=== PATIENT | male | born 1955 | race Caucasian/White ===

== ENCOUNTER 2019-11-27 14:00 | Emergency (ER) | payer OTHER, SELFPAY ==
[2019-11-27 14:05] VITALS: BP 140/79; PULSE 70; RESP 18; TEMP 36.8; O2SAT 97; BMI 28.3
--- NOTE | 2019-11-27 14:08 | HMH.COUGH ---
Cough Clinic HPI - History of Present Illness Complaint:: cough HPI:: Patient presents with a one-week history of cough, fatigue, and dyspnea with exertion. Cough is productive of yellowish-green sputum. He complains of a tightness in his chest. No pleuritic pain. He has no fever. Patient states he had a prolonged illness back in the fall with cough, congestion and fatigue. He states at that time his cough lasted about 6 weeks. Additional history is significant for having been exposed to the index case of coronavirus here in [place] about 7 weeks ago. 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 Home Medications: Home Medications Medication Instructions Recorded Confirmed Type acetaminophen 300 mg-codeine 30 mg 1 tab PO DAILY 15 Days tab 11/04/18 11/27/19 History tablet aspirin 81 mg tablet,delayed 81 mg PO DAILY 11/04/18 11/27/19 History release atorvastatin 80 mg tablet 80 mg PO DAILY 11/04/18 11/27/19 History carvedilol 6.25 mg tablet 6.25 mg PO BID 11/04/18 11/27/19 History cephalexin 500 mg capsule 500 mg PO DAILY 5 Days cap 11/04/18 11/27/19 History cholecalciferol (vitamin D3) 25 1,000 unit PO DAILY 11/04/18 11/27/19 History mcg (1,000 unit) capsule clopidogrel 75 mg tablet 75 mg PO DAILY 11/04/18 11/27/19 History clopidogrel 75 mg tablet 75 mg PO DAILY 90 Days tab 11/04/18 11/27/19 History lisinopril 5 mg tablet 5 mg PO DAILY 90 Days tab 11/04/18 11/27/19 History [id number] acid-vit 1 tab PO DAILY 11/04/18 11/27/19 History K-lycop 400 mcg-20 mcg-370 mcg tablet nitroglycerin 2.5 mg 2.5 mg PO TID 11/04/18 11/27/19 History capsule,extended release omega-3 fatty acids 1,000 mg 1,000 mg PO DAILY 11/04/18 11/27/19 History capsule ondansetron 4 mg disintegrating 4 mg PO TID PRN 5 Days #15 tab 11/04/18 11/27/19 Rx tablet valacyclovir 1 gram tablet 1,000 mg PO DAILY 11/04/18 11/27/19 History vitamin E 1,000 unit/112 gram 1,000 unit TOPICAL DAILY g 11/04/18 11/27/19 History topical cream Allergies/Adverse Reactions: Allergies Allergy/AdvReac Type Severity Reaction Status Date / Time No Known Allergies Allergy Verified 11/27/19 14:04 [facility] T[facility] - Symptoms Fever History: No Nasal Drainage: Yes Productive Cough: Yes (green) Chest Pain: Yes (tight) Shortness of Breath: Yes Nausea or Vomitting: No - Exposure History Foreign Travel: No Direct Contact with COVID-19 Patient: Yes If YES, Who:: Nader Vallejo index patient When:: 7 weeks ago [facility] History Medical History: Reports:: Coronary Artery Disease, Hyperlipidemia, Hypertension, Myocardial Infarction Other Surgeries: Yes: Coronary Stent Amputation: No Fractures: No - Social History Smoking Status: Former smoker Alcohol Intake: current Alcohol Intake Frequency:: holidays/special occasions only Substance Use Type: denies use Occupational Status: employed Housing: house Household Members: spouse Family Hx:: Adopted - Constitutional Constitutional: Denies body ache, Reports fatigue, Denies fever(s), Reports malaise, Reports weakness - Eyes Eyes: Denies eye discharge, Denies irritation - ENT Ears, Nose, Mouth, and Throat: Denies otalgia, Denies hoarseness, Denies sore throat - Cardiovascular Cardiovascular: Reports chest pain (described as tightness) - Respiratory Respiratory: Yes as per HPI - Gastrointestinal Gastrointestingal: Denies: diarrhea, vomiting [facility] Exam - General General appearance: in no apparent distress - Eye Eye exam: Absent: conjunctival injection - ENT ENT exam: Present: normal oropharynx, mucous membranes moist - Neck Neck exam: Absent: tenderness, lymphadenopathy - Respiratory Respiratory exam: Present: normal lung sounds bilaterally - Cardiovascular Cardiovascular exam: Present: normal rhythm, normal heart sounds - Neurological Exam Neurological exam: Present: alert [facility] MDM - Medical Records Medical records reviewed:
[2019-11-27 14:25] LABS: Basophils % 0.5 % (0.1-2.0); Eosinophils # 0.6 K/mm3 (0.0-0.4); Eosinophils % 9.6 % (0.1-12.0); Hematocrit 43.4 % (42.0-52.0); Hemoglobin 14.8 g/dL (14.1-18.0); Lymphocytes % 29.5 % (10-50); Mean Corpuscular HGB Conc 34.1 g/dL (31.8-35.4); Mean Corpuscular Hemoglobin 31.7 pg (27.0-31.2); Mean Corpuscular Volume 93.1 fl (80-94); Mean Platelet Volume 9.3 fl (7.4-10.4); Monocytes # 0.6 K/mm3 (0.1-1.0); Monocytes % 8.7 % (1.7-9.3); Neutrophils # 3.4 K/mm3 (1.8-7.8); Neutrophils % 51.7 % (37.0-80.0); Platelet Count 185 K/mm3 (142-424); Red Blood Count 4.66 M/mm3 (4.60-6.20); Red Cell Distribution Width 13.8 % (11.5-17.5); White Blood Count 6.6 K/mm3 (4.8-10.8)
[2019-11-27 14:47] LABS: Adenovirus,PCR Not Detected (NotDetected); Bordetella Pertussis Not Detected (NotDetected); Chlamydophila Pneumoniae, PCR Not Detected (NotDetected); Coronavirus 229E Not Detected (NotDetected); Coronavirus NL63 Not Detected (NotDetected); Coronavirus OC43 Not Detected (NotDetected); Coronovirus HKU1,PCR Not Detected (NotDetected); Human Metapneumovirus Not Detected (NotDetected); Influenza A, PCR Not Detected (NotDetected); Influenza AH1, 2009 Not Detected (NotDetected); Influenza AH1, PCR Not Detected (NotDetected); Influenza AH3,PCR Not Detected (NotDetected); Influenza B, PCR Not Detected (NotDetected); Mycoplasma Pneumoniae, PCR Not Detected (NotDetected); Parainfluenza 1, PCR Not Detected (NotDetected); Parainfluenza 2, PCR Not Detected (NotDetected); Parainfluenza 3, PCR Not Detected (NotDetected); Parainfluenza 4, PCR Not Detected (NotDetected); Respiratory Syncytial Virus Not Detected (NotDetected); Rhinovirus/Enterovirus Not Detected (NotDetected)
[2019-11-27 15:07] VITALS: BP 140/79; PULSE 70; RESP 18; TEMP 36.8; O2SAT 97
[2019-11-29 08:51] LABS: Covid-19 Nasal PCR Sendout Lex Not Detected
--- NOTE | 2019-11-29 10:15 | PC.NURSE ---
Notified patient and Dr Reid of NEGATIVE COVID results. Faxed to [facility].
== END 2019-11-27 15:05 | disposition home or self-care (01) ==
PROVIDERS: Emergency Provider Family Medicine; PCP Family Medicine
DX: J06.9 Acute upper respiratory infection, unspecified (principal); I25.10 Atherosclerotic heart disease of native coronary artery without angina pectoris; I10 Essential (primary) hypertension; E78.5 Hyperlipidemia, unspecified; I25.2 Old myocardial infarction; Z87.891 Personal history of nicotine dependence; Z79.899 Other long term (current) drug therapy
CPT/HCPCS: 36415; 85025; 87486; 87581; 87633; 87798; 99201; 99213; U0003

== ENCOUNTER → 2023-06-06 07:43 | Outpatient (CLI) | payer MEDICARE, OTHER, SELFPAY ==
--- NOTE | 2023-06-06 07:47 | US_ITS ---
FINAL REPORT TECHNIQUE: Ultrasound images of the abdominal aorta were obtained. CLINICAL HISTORY: H/O NICOTINE DEPENDENCE COMPARISON: None FINDINGS: ULTRASOUND OF THE ABDOMINAL AORTA The aorta measures up to 1.7 cm. The bifurcation is normal. IMPRESSION: No evidence of abdominal aortic aneurysm. Reviewed, Interpreted and Dictated by Charan Dominguez III, MD Transcribed by Betzy Quinn Authenticated and . [facility]
== END ==
PROVIDERS: PCP Family Medicine; Visit Provider Family Medicine
DX: Z87.891 Personal history of nicotine dependence (principal)
CPT/HCPCS: 76705

== ENCOUNTER 2024-04-15 15:47 | Outpatient (POV) | payer MEDICARE, OTHER, SELFPAY | END 2024-04-15 23:59 | disposition home or self-care (01) | LOC: SC 15:47 | PROVIDERS: PCP Family Medicine; Visit Provider Dermatology | DX: Z00.00 Encounter for general adult medical examination without abnormal findings (principal) ==

== ENCOUNTER 2024-09-21 09:52 | Observation (INO) | payer MEDICARE, OTHER, SELFPAY ==
[2024-09-21] VITALS (10 sets, daily range): BP systolic 110–157; BP diastolic 84–95; PULSE 66–88; RESP 17–19; TEMP 36.5–37.1; O2SAT 92–99; BMI 25.8; BMI 27.2
--- NOTE | 2024-09-21 09:48 | ECG_ITS ---
APPROVED REPORT Exam: Resting ECG HR:88 bpm ECG Measurements Heart Rate 88 AXES [place] 151 P 57 QRSd 89 QRS 38 QT 342 T 67 QTc 388 Conclusion SINUS RHYTHM NORMAL ECG UNCONFIRMED REPORT Electronically signed by : Jaden Castro, 09/21/2024 15:12:51
--- NOTE | 2024-09-21 10:04 | XR_ITS ---
PROCEDURE INFORMATION: Exam: XR Chest Exam date and time: 09/21/2024 10:15 AM Age: 69 years old Clinical indication: Other: Chest pain TECHNIQUE: Imaging protocol: Radiologic exam of the chest. Views: 1 view. COMPARISON: No relevant prior studies available. FINDINGS: Lungs: No evidence of pneumonia or interstitial edema. Pleural spaces: Unremarkable. No pleural effusion. No pneumothorax. Heart/Mediastinum: Unremarkable. No cardiomegaly. Bones/joints: Unremarkable. IMPRESSION: No evidence of pneumonia or interstitial edema.
[2024-09-21 10:12] LABS: Basophils % 0.4 % (0.1-2.0); Eosinophils # 0.3 K/mm3 (0.0-0.4); Eosinophils % 3.2 % (0.1-12.0); Hemoglobin 16.1 g/dL (14.1-18.0); Lymphocytes % 19.5 % (10-50); Mean Corpuscular HGB Conc 33.5 g/dL (31.8-35.4); Mean Corpuscular Hemoglobin 30.6 pg (27.0-31.2); Mean Corpuscular Volume 91.3 fl (80-94); Mean Platelet Volume 11.1 fl (7.4-10.4); Monocytes % 10.2 % (1.7-9.3); Neutrophils # 6.7 K/mm3 (1.8-7.8); Neutrophils % 65.5 % (37.0-80.0); Platelet Count 226 K/mm3 (142-424); Red Blood Count 5.26 M/mm3 (4.60-6.20); Red Cell Distribution Width 13.1 % (11.5-17.5); White Blood Count 10.2 K/mm3 (4.8-10.8)
[2024-09-21 10:13] LABS: Chloride 100 mmol/L (98-107)
[2024-09-21 10:14] LABS: Albumin Level 4.3 g/dl (3.5-5.0); Potassium 4.2 mmoL/L (3.5-5.1); Sodium 136 mmol/L (136-145)
[2024-09-21 10:16] LABS: Blood Urea Nitrogen 20 mg/dl (9-20)
[2024-09-21 10:17] LABS: Alanine Aminotransferase 49 U/L (12-78); Albumin/Globulin Ratio 1.7 (1.1-1.8); Alkaline Phosphatase 65 U/L (38-126); Anion Gap 13.2 mEq/L (5-15); Aspartate Amino Transferase 41 U/L (17-59); Bilirubin,Total 0.5 mg/dl (0.2-1.3); Calcium 8.5 mg/dl (8.4-10.2); Carbon Dioxide 27 mmol/L (22.0-30.0); Creatinine Clearance Estimated 92 mL/min (50-200); Estimated Glomerular Filt Rate 96 ml/min (>60); GFR (African American) 117 ML/MIN (>60); Globulin 2.6 g/dL (1.3-3.2); Glucose 107 mg/dl (74-100); Total Protein,Serum 6.9 g/dl (6.3-8.2)
[2024-09-21] MEDS: ASPIRIN 81MG CHEWABLE TABLET 324 MG PO (10:23)
--- NOTE | 2024-09-21 10:27 | PC.NURSE ---
pt has taken multiple nitro sl over the last several days.
[2024-09-21 10:39] LABS: Troponin I < 0.01 ng/ml (0.00-0.034)
[2024-09-21 11:19] LABS: HIV Combo NEGATIVE (Negative)
--- NOTE | 2024-09-21 11:24 | PC.NURSE ---
on phone with hospitalist
[2024-09-21 11:26] LABS: Hepatitis C Ab Qual. W/ RFX NEGATIVE (Negative)
--- NOTE | 2024-09-21 11:30 | HMH.EDCP ---
Discharge Plan Disposition Chief Complaint: Chest Pain Prescriptions Prescriptions: No Action acetaminophen-codeine 300-30 mg tablet 1 tab PO DAILY 15 Days lisinopril 5 mg tablet 5 mg PO DAILY 90 Days clopidogrel 75 mg tablet 75 mg PO DAILY 90 Days cephalexin 500 mg capsule 500 mg PO DAILY 5 Days atorvastatin 80 mg tablet 80 mg PO DAILY carvedilol 6.25 mg tablet 6.25 mg PO BID valacyclovir 1 gram tablet 1,000 mg PO DAILY nitroglycerin 2.5 mg capsule, extended release 2.5 mg PO TID aspirin [Adult Low Dose Aspirin] 81 mg tablet,delayed release (DR/EC) 81 mg PO DAILY Men's 50 Plus Multivitamin 400-20-370 mcg tablet 1 tab PO DAILY omega-3 fatty acids [Fish Oil Concentrate] 1,000 mg capsule 1,000 mg PO DAILY vitamin E 1,000 unit/112 gram cream 1,000 unit TOPICAL DAILY cholecalciferol (vitamin D3) 1,000 unit capsule 1,000 unit PO DAILY clopidogrel [Plavix] 75 mg tablet 75 mg PO DAILY ondansetron 4 mg tablet,disintegrating 4 mg PO TID PRN (Reason: nausea and vomiting) 5 Days Qty: 15 0RF Referrals Follow up/Referrals: Dilma Horta [Primary Care Provider] - See instructions Print Language Print Language: Icelandic Discharge ED Provider: Sridhar Castro [facility] General Chief Complaint: Chest Pain Stated Complaint: chest pain Time Seen by Provider: 09/21/24 11:06 Mode of Arrival: Ambulatory Source of Information: Patient Limitations: No Limitations Description of Symptoms (Recalled from ER Triage Doc. by RN): pt has been having intermittent chest pain for several days. has taken multiple nitro. has an extensive cardiac history. [facility] cardiology History of Present Illness HPI narrative: Patient is a 69-year-old male with a known history of coronary artery disease whose had 13 stents in the past most recent left heart cath was in 2017 most recent stress test was in 2019 and has been asymptomatic essentially since that time presents today with 2 weeks of worsening and crescendoing chest pain that has been relieved each time with nitroglycerin. However has been nonexertional. No diaphoresis or shortness of breath associate with it. He is currently without symptoms most recent episode was just prior to arrival that was resolved with nitroglycerin. States that he is typically followed at [facility] but his front end alignment specialist is no longer there and they called their office who said good luck. Therefore they came to her similar. They are happy with their management here. Patient states the chest pain is very similar to MIs he is in the past. Related Data Home Medications ?Medication ?Instructions ?Recorded ?Confirmed acetaminophen 300 mg-codeine 30 mg 1 tab PO DAILY Pain 15 days 11/04/18 11/27/19 tablet aspirin 81 mg tablet,delayed 81 mg PO DAILY heart heralth 11/04/18 11/27/19 release (Adult Low Dose Aspirin) atorvastatin 80 mg tablet 80 mg PO DAILY chjolestrol 11/04/18 11/27/19 carvedilol 6.25 mg tablet 6.25 mg PO BID htn 11/04/18 11/27/19 cephalexin 500 mg capsule 500 mg PO DAILY Infection 5 days 11/04/18 11/27/19 cholecalciferol (vitamin D3) 25 1,000 unit PO DAILY Supplement 11/04/18 11/27/19 mcg (1,000 unit) capsule clopidogrel 75 mg tablet 75 mg PO DAILY Blood thinner 90 11/04/18 11/27/19 days clopidogrel 75 mg tablet (Plavix) 75 mg PO DAILY Blood thinner 11/04/18 11/27/19 lisinopril 5 mg tablet 5 mg PO DAILY htn 90 days 11/04/18 11/27/19 [id number] acid-vit 1 tab PO DAILY Supplement 11/04/18 11/27/19 K-lycop 400 mcg-20 mcg-370 mcg tablet (Men's 50 Plus Multivitamin) nitroglycerin 2.5 mg 2.5 mg PO TID Heartburn 11/04/18 11/27/19 capsule,extended release omega-3 fatty acids 1,000 mg 1,000 mg PO DAILY Supplement 11/04/18 11/27/19 capsule (Fish Oil Concentrate) valacyclovir 1 gram tablet 1,000 mg PO DAILY Infection 11/04/18 11/27/19 vitamin E 1,000 unit/112 gram 1,000 unit topical DAILY Supplement 11/04/18 11/27/19 topical cream Previous Rx's ?Medication ?Instructions ?Recorded ondansetron 4 mg disintegrating 4 mg PO TID PRN nausea and 11/04/18 tablet vomiting 5 days #15 tabs Allergies Allergy/AdvReac Type Severity Reaction Status Date / Time No Known Allergies Allergy Verified 11/27/19 14:04 [facility] Disclaimer: The information contained in this section may have been updated after the patient was seen, as this information can be updated by other users. Social History Smoking Status: Never smoker alcohol intake: current alcohol intake frequency: holidays/special occasions only substance use type: denies use current occupational status: employed Travel in the last 8 weeks: None household members: spouse housing: house Have you lived/traveled outside US in past 30 days?: No Contact w/someone who lives/traveled outside US past 30 days?: No Exposure to someone with infectious disease in past 14 days?: No Do you have a fever (greater than 100.4 F or 38 C)?: No Have you tested positive for COVID-19: No Exposed to someone with COVID-19 in past 14 days?: No Do you have a sore throat?: No Do you have a cough?: No Do you have any weakness?: No Do you have any diarrhea?: No Are you experiencing any unusual bleeding?: No Do you have any muscle aches/pain?: No Do you have any abdominal pain?: No Are you experiencing loss of taste or smell?: No ROS Obtained: Yes All systems reviewed & no additional complaints except as documented Physical Exam General General appearance: alert Respiratory Respiratory exam: Present normal lung sounds bilaterally; Absent respiratory distress Cardiovascular Cardiovascular exam: Present regular rate and normal rhythm Neurological Exam Neurological exam: Present alert HEART Score HEART Score HEART Score assessment performed?: Yes History (anamnesis): Highly suspicious ECG: Normal Age: >65 years Risk factors: Atherosclerosis history Troponin: </= normal limit HEART Score: 6 Critical Care Critical Care Time Critical Care Time: Yes Attestation: On 09/21/24, the high probability of a clinically significant, sudden or life threatening deterioration of the following system(s) required my full and direct attention, intervention and personal management. The time I documented below is in addition to time spent performing reported procedures but includes the following listed in this critical care notation. Total Time Total Critical Care Time: 35 Medical Decision Making Chuck Inquiry Pt receiving controlled substance: No Vital Signs Vital Signs: 09/21/24 09:52 09/21/24 10:52 Temperature 98.0 F Temperature Source Oral Pulse Rate 76 Pulse Rate [Right] 80 Respiratory Rate 18 17 Blood Pressure 117/84 Blood Pressure [Right Arm] 135/90 Blood Pressure Mean [Right Arm] 105 02 Sat by Pulse Oximetry 98 92 L Lab Data Lab results reviewed: Yes I reviewed the patient's lab results. Labs: Lab Results 09/21/24 09:54: WBC 10.2, RBC 5.26, Hgb 16.1, Hct 48.0, MCV 91.3, MCH 30.6, MCHC 33.5, RDW 13.1, Plt Count 226, MPV 11.1 H, Neut % (Auto) 65.5, Lymph % (Auto) 19.5, [place] % (Auto) 10.2 H, Eos % (Auto) 3.2, Baso % (Auto) 0.4, Neut # (Auto) 6.7, Lymph # (Auto) 2.0, [place] # (Auto) 1.0, Eos # (Auto) 0.3, Baso # (Auto) 0.0, Sodium 136, Potassium 4.2, Chloride 100, Carbon Dioxide 27, Anion Gap 13.2, BUN 20, Creatinine 0.80, Estimated Creat Clear 92, Estimated GFR 96, Est GFR ( Amer) 117, Glucose 107 H, Calcium 8.5, Total Bilirubin 0.5, AST 41, ALT 49, Alkaline Phosphatase 65, Troponin I < 0.01, Total Protein 6.9, Albumin 4.3, Globulin 2.6, Albumin/Globulin Ratio 1.7, HCV Ab MEG w/Rflx PCR Qn Negative, HIV Ag/Ab Combo Qual Negative 09/21/24 09:54 09/21/24 09:54 Response Orders (Tests/Meds): ED MEDICATIONS Generic Name Dose Route Start Last Admin Trade Name Freq PRN Reason Stop Dose Admin Nitroglycerin 0.4 mg 09/21/24 10:04 Nitroglycerin 0.4mg Sl Tablet SL 09/22/24 10:04 Q5MINP PRN Chest Pain Discontinued Medications Generic Name Dose Route Start Last Admin Trade Name Freq PRN Reason Stop Dose Admin Aspirin 324 mg 09/21/24 10:04 09/21/24 10:23 Aspirin 81mg Chewable Tablet PO 09/21/24 10:05 324 mg ONCE ONE Administration ORDERS Category Date Time Status XR chest portable Stat Exams 09/21/24 10:04 Completed Complete Blood Count Auto Diff Stat Lab 09/21/24 09:54 Completed Comprehensive Metabolic Panel Stat Lab 09/21/24 09:54 Completed HIV Combo Stat Lab 09/21/24 09:54 Completed Hepatitis C Ab Qual. W/ RFX Stat Lab 09/21/24 09:54 Completed Troponin I Q3H Lab 09/21/24 13:15 Ordered Troponin I Q3H Lab 09/21/24 16:15 Ordered Troponin I Stat Lab 09/21/24 09:54 Completed ECG Data Tracing #1: Attestation: I reviewed this ECG and interpreted as documented below: ECG Narrative: Ventricular rate of 88 normal sinus rhythm no acute ischemic changes noted normal axis no conduction abnormality MDM Narrative Medical Decision Narrative: Well-appearing 69-year-old who is without symptoms at the moment but has a very concerning history. Has a significantly elevated heart score. His symptoms are consistent clinically with unstable angina. EKG is nonischemic troponin on first measurement is undetectably low but that would not exchange mechanic. Patient likely needs another heart cath. I discussed the case with Dr. Jaimes who agreed. Patient is already on Eliquis for atrial fibrillation in the past for which she has had a ablation but is also on aspirin. We asked that he hold the Eliquis I spoke to hospital medicine and advised him of this to hold in the morning. Patient does not need further anticoagulation or antiplatelets at the moment. Will admit the patient with a diagnosis of unstable angina with plans to do a heart cath in the morning.
--- NOTE | 2024-09-21 11:59 | PC.NURSE ---
Patient assisted to the restroom and back. Monitor /BP re-attached
--- NOTE | 2024-09-21 12:13 | PC.NURSE ---
report called to Herlinda
--- NOTE | 2024-09-21 12:48 | PC.NURSE ---
arrived by w/c from ED
--- NOTE | 2024-09-21 13:36 | EXP.HP ---
History of Present Illness *Admission Date: 09/21/24 *Reason for visit:: Chest pains *History of present illness: Abdias Peng is a 69-year-old male with a medical history significant for CAD s/p 13 stents (last 2016, [employer] [place]), former 30 pack smoker, Eliquis s/p ablation on Eliquis, hypertension, shingles who presents with 3 weeks of progressive intermittent chest pains. He states chest pains are diffuse, not midsternal, and did have an episode of associated diaphoresis though this was after exertion. He states the chest pains are also present with rest, no associated shortness of breath. Not related to eating. Does have a history of acid reflux a couple times a week. 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 Advised to go to the ED if chest pains persist. Workup in the ED significant for negative troponin, EKG unremarkable for acute ischemic findings. Dx are also unremarkable. Case discussed with ED provider and decision was made to admit patient for unstable angina. [facility] Disclaimer: The information contained in this section may have been updated after the patient was seen, as this information can be updated by other users. Medical History (Updated 09/21/24 @ 14:29 by Lo Larry RN) History of mechanical ventilation Chest pain History of shingles HTN (hypertension) HLD (hyperlipidemia) Back pain Pelvic fracture COPD (chronic obstructive pulmonary disease) Heart attack Afib Surgical History (Updated 09/21/24 @ 14:28 by Lo Larry RN) History of cardiac catheterization Social History Smoking Status: Never smoker alcohol intake: current alcohol intake frequency: holidays/special occasions only substance use type: denies use current occupational status: employed Travel in the last 8 weeks: None household members: spouse housing: house Have you lived/traveled outside US in past 30 days?: No Contact w/someone who lives/traveled outside US past 30 days?: No Exposure to someone with infectious disease in past 14 days?: No Do you have a fever (greater than 100.4 F or 38 C)?: No Have you tested positive for COVID-19: No Exposed to someone with COVID-19 in past 14 days?: No Do you have a sore throat?: No Do you have a cough?: No Do you have any weakness?: No Do you have any diarrhea?: No Are you experiencing any unusual bleeding?: No Do you have any muscle aches/pain?: No Do you have any abdominal pain?: No Are you experiencing loss of taste or smell?: No Meds Home Medications and Allergies Home Medications ?Medication ?Instructions ?Recorded ?Confirmed ?Type aspirin 81 mg tablet,delayed 81 mg PO DAILY 11/04/18 09/21/24 History release (Adult Low Dose Aspirin) atorvastatin 80 mg tablet 80 mg PO HS 11/04/18 09/21/24 History lisinopril 5 mg tablet 5 mg PO DAILY 90 days 11/04/18 09/21/24 History apixaban 5 mg tablet (Eliquis) 5 mg PO BID 09/21/24 09/21/24 History loratadine-pseudoephedrine ER 10 1 tab PO DAILY 09/21/24 09/21/24 History mg-240 mg tablet,extended [id number] (Loratadine-D) nitroglycerin 0.4 mg sublingual 0.4 mg sublingual Q5MINP PRN Chest 09/21/24 09/21/24 History tablet Pain valacyclovir 500 mg tablet 500 mg PO DAILY 09/21/24 09/21/24 History New Prescriptions to Start Prescriptions: Allergies Allergy/AdvReac Type Severity Reaction Status Date / Time No Known Allergies Allergy Verified 11/27/19 14:04 Exam Data for Last 24 hours Vital signs and Labs for Last 24 Hours: Temp Pulse Resp BP Pulse Ox O2 Del Method 97.7 F 77 18 128/92 H 96 Room Air 09/21/24 12:50 09/21/24 12:50 09/21/24 12:50 09/21/24 12:50 09/21/24 12:50 09/21/24 12:50 Laboratory Results - last 24 hr 09/21/24 09:54: WBC 10.2, RBC 5.26, Hgb 16.1, Hct 48.0, MCV 91.3, MCH 30.6, MCHC 33.5, RDW 13.1, Plt Count 226, MPV 11.1 H, Neut % (Auto) 65.5, Lymph % (Auto) 19.5, [place] % (Auto) 10.2 H, Eos % (Auto) 3.2, Baso % (Auto) 0.4, Neut # (Auto) 6.7, Lymph # (Auto) 2.0, [place] # (Auto) 1.0, Eos # (Auto) 0.3, Baso # (Auto) 0.0, Sodium 136, Potassium 4.2, Chloride 100, Carbon Dioxide 27, Anion Gap 13.2, BUN 20, Creatinine 0.80, Estimated Creat Clear 92, Estimated GFR 96, Est GFR ( Amer) 117, Glucose 107 H, Calcium 8.5, Total Bilirubin 0.5, AST 41, ALT 49, Alkaline Phosphatase 65, Troponin I < 0.01, Total Protein 6.9, Albumin 4.3, Globulin 2.6, Albumin/Globulin Ratio 1.7, HCV Ab MEG w/Rflx PCR Qn Negative, HIV Ag/Ab Combo Qual Negative I & O for Last 24 hours: Intake & Output 09/18/24 09/19/24 09/20/24 09/21/24 23:59 23:59 23:59 23:59 Weight 91.172 kg Constitutional Constitutional: no acute distress *Routine HEENT Exam Head: Present normocephalic Eye: Present EOMI and PERRL ENT: Present mucous membranes moist *Routine Neck Exam Neck: Present supple; Absent lymphadenopathy *Routine Respiratory Exam Respiratory: Present CTA bilaterally *Routine Cardiovascular Exam Cardiovascular: Present RRR *Routine Abdominal Exam Abdominal: Present soft and normoactive bowel sounds; Absent tenderness *Routine Rectal Exam Rectal:: deferred *Routine Genitalia Exam Genitalia:: deferred *Routine Extremities Exam Extremities: Absent cyanosis, clubbing or edema *Routine Skin Exam Skin: Present warm; Absent rash *Routine Neurological Exam Neurological: Present alert and oriented X3 Assessment and Plan *Assessment and plan (1) Unstable angina: Status: Acute Category: Medical Code(s): I20.0 - Unstable angina Plan Abdias Peng is a 69-year-old male with a medical history significant for CAD s/p 13 stents (last 2016, [employer] [place]), former 30 pack smoker, Eliquis s/p ablation on Eliquis, hypertension, shingles who presents with 3 weeks of progressive intermittent chest pains. He states chest pains are diffuse, not midsternal, and did have an episode of associated diaphoresis though this was after exertion. He states the chest pains are also present with rest, no associated shortness of breath. Not related to eating. Does have a history of acid reflux a couple times a week. 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 Advised to go to the ED if chest pains persist. Workup in the ED significant for negative troponin, EKG unremarkable for acute ischemic findings. Dx are also unremarkable. Case discussed with ED provider and decision was made to admit patient for unstable angina. #Chest pain #Suspected unstable angina #Possible GERD ? Progressive diffuse chest pains even at rest for the past 3 weeks. ? History of CAD with 13 stents, follows with Lindsey Stokes advised to go to the ED if symptoms persist. His secondary history teacher is out of town. ? Negative troponin, EKG without acute ischemic findings. LUPIS score 3. Currently chest pain-free. ? Cardiology consulted, pending further recommendations. N.p.o. at midnight. ? Aspirin 81 mg, atorvastatin 80 mg. ? Nitro tab as needed for chest pain. ? Started Protonix 40 mg nightly. ? Follow-up ECHO. ? Follow-up D-dimer, respiratory panel. #Hypertension ? Resumed home lisinopril 5 mg. #Eliquis s/p ablation ? Currently rate controlled. Hold home Eliquis pending cardiology evaluation, possible LHC tomorrow. #History of shingles ? Resume home valacyclovir. Full code DVT prophylaxis: Lovenox 40
[2024-09-21 15:17] LABS: Troponin I < 0.01 ng/ml (0.00-0.034)
[2024-09-21] MEDS: NITROGLYCERIN 0.4MG SL TABLET 0.4 MG SL (15:37)
[2024-09-21 16:59] LABS: Troponin I < 0.01 ng/ml (0.00-0.034)
[2024-09-21 18:05] LABS: D-Dimer 0.43 ug/mL (0.0-0.5)
[2024-09-21 18:29] LABS: Coronavirus 19, PCR Not Detected (NotDetected); Human Rhinovirus Not Detected (NotDetected); Influenza A, PCR Not Detected (NotDetected); Influenza B, PCR Not Detected (NotDetected); Respiratory Syncytial Virus Not Detected (NotDetected)
[2024-09-21] MEDS: PANTOPRAZOLE 40MG TABLET 40 MG PO (20:05)
[2024-09-21] MEDS: ATORVASTATIN 40MG TABLET 80 MG PO (20:05)
[2024-09-22] VITALS (17 sets, daily range): BP systolic 109–150; BP diastolic 72–98; PULSE 65–85; RESP 16–22; TEMP 36.5–36.8; O2SAT 91–99; BMI 27.1
[2024-09-22] MEDS: NITROGLYCERIN 0.4MG SL TABLET 0.4 MG SL (00:15)
[2024-09-22] MEDS: LORATADINE 10MG TABLET 10 MG PO (00:20)
--- NOTE | 2024-09-22 04:22 | PC.NURSE ---
Pt A&OX4 and has tolerated room air. Lung sounds clear and bowels sounds active. He has complained of chest pain once this shift. He was given one Nitro tablet. Pain was resolved shortly after and he has not complained of any pain since. He has ambulated the room independently. Currently resting in bed with call light within reach.
[2024-09-22] MEDS: diphenhydrAMINE 25MG CAPSULE 25 MG PO (06:02)
[2024-09-22 07:26] LABS: Basophils % 0.2 % (0.1-2.0); Eosinophils # 0.4 K/mm3 (0.0-0.4); Eosinophils % 3.6 % (0.1-12.0); Hematocrit 47.1 % (42.0-52.0); Hemoglobin 15.9 g/dL (14.1-18.0); Lymphocytes # 1.6 K/mm3 (0.7-4.5); Lymphocytes % 16.1 % (10-50); Mean Corpuscular HGB Conc 33.8 g/dL (31.8-35.4); Mean Corpuscular Hemoglobin 30.6 pg (27.0-31.2); Mean Corpuscular Volume 90.8 fl (80-94); Mean Platelet Volume 11.5 fl (7.4-10.4); Monocytes # 0.8 K/mm3 (0.1-1.0); Neutrophils % 71.1 % (37.0-80.0); Platelet Count 202 K/mm3 (142-424); Red Blood Count 5.19 M/mm3 (4.60-6.20); Red Cell Distribution Width 13.1 % (11.5-17.5); White Blood Count 9.9 K/mm3 (4.8-10.8)
[2024-09-22 07:38] LABS: Albumin Level 3.8 g/dl (3.5-5.0); Chloride 103 mmol/L (98-107); Potassium 4.1 mmoL/L (3.5-5.1); Sodium 136 mmol/L (136-145)
[2024-09-22 07:40] LABS: Anion Gap 10.1 mEq/L (5-15); Blood Urea Nitrogen 18 mg/dl (9-20); Carbon Dioxide 27 mmol/L (22.0-30.0); Creatinine Clearance Estimated 92 mL/min (50-200); Estimated Glomerular Filt Rate 134 ml/min (>60); GFR (African American) 163 ML/MIN (>60)
[2024-09-22 07:41] LABS: Alanine Aminotransferase 41 U/L (12-78); Albumin/Globulin Ratio 1.5 (1.1-1.8); Alkaline Phosphatase 60 U/L (38-126); Aspartate Amino Transferase 36 U/L (17-59); Bilirubin,Total 0.6 mg/dl (0.2-1.3); Calcium 8.5 mg/dl (8.4-10.2); Globulin 2.5 g/dL (1.3-3.2); Glucose 90 mg/dl (74-100); Magnesium 2.1 mg/dl (1.6-2.3); Total Protein,Serum 6.3 g/dl (6.3-8.2)
[2024-09-22] MEDS: ASPIRIN EC 81MG TABLET 81 MG PO (08:37)
[2024-09-22] MEDS: LISINOPRIL 5MG TABLET 5 MG PO (08:37)
[2024-09-22] MEDS: VALACYCLOVIR 500 MG 500 EACH PO (09:23)
--- NOTE | 2024-09-22 10:02 | IR_ITS ---
APPROVED REPORT Patient Location: Inpatient PROCEDURES Left heart catheterization Left ventriculogram Selective coronary angiogram Drug-eluting stent deployment to the ostial proximal and mid dominant right coronary artery in a contiguous manner INDICATION Accelerated angina pectoris, Coronary artery disease Informed consent was obtained prior to the procedure. COMPLICATIONS NONE Estimated Blood Loss: LESS THAN 10 ML TECHNIQUE One percent lidocaine used to anesthetize the right anterior aspect of the wrist. The right radial artery was accessed via the Seldinger technique. A 6 [place]ian sheath was placed in the right radial artery. 2.5 mg of Verapamil, 800 mcg of nitroglycerin, 1mg Lidocaine and 5000 U Heparin were given through the arterial sheath. The 6 [place]ian JL 3 guide catheter was also used to perform left heart catheterization, left ventriculogram and selective coronary angiogram. At the end the diagnostic angiogram therapeutic heparin was administered giving a therapeutic ACT and the guide catheter was placed in the right coronary artery followed by Choice PT extra-support wire placed distally. A 3.5 x 38 mm Olaf frontier stent was deployed at 22 ryan reducing the stenosis to 0%. An additional 3.5 x 18 mm Olaf frontier stent was placed proximal to the for stent yet still overlapping and deployed at 24 ryan further reducing the stenosis. LUPIS-3 flow was present before and after the procedure. At the end the procedure the apparatus was removed the sheath was removed good hemostasis was achieved using TR banding patient was transferred to the postop holding in stable condition ANGIOGRAPHIC RESULTS The left main artery Normal The left anterior descending artery Is a large-caliber vessel and has proximal 10 to 20% stenosis. A large first diagonal artery has an ostial 30% smooth stenosis The circumflex artery Is nondominant proximally occluded within the stent with a distal vessel filling via left to left and right to left collaterals The right coronary artery Large and dominant with a proximal concentric 80% stenosis followed by an additional eccentric 60% stenosis. Distally there are 20% stenoses. Posterior descending artery is large and widely patent. Posterior lateral branch has proximal 20 and 30% stenosis with a stent in the distal segment which has 50% concentric in-stent restenosis. The stent stops immediately proximal to 2 small terminal branches. The CORREIA ventriculogram reveals Normal 65% The left ventricular end-diastolic pressure 10 to 15 mmHg IMPRESSION Chronically occluded nondominant circumflex artery which fills via both left to left and right to left collaterals Severe disease in the proximal dominant right coronary as described above with successful stenting reducing the ostial proximal and mid segment to 0% with 2 contiguous drug-eluting stents Normal ejection fraction Normal LVEDP Moderate in-stent restenosis in the distal posterior lateral branch PLAN 1. Dual antiplatelet therapy 2. Maximize antianginal medications 3. Cardiac rehabilitation 4. LDL less than 55 to achieve that high intensity statin 5. Avoidance of tobacco products Electronically signed by : Candido Jaimes MD 09/22/2024 12:09:00
--- NOTE | 2024-09-22 10:02 | EXP.CARD.CON ---
History of Present Illness History of Present Illness Consult date: 09/22/24 Consult reason: chest pain Chief complaint: chest pain History of present illness: 69-year-old white male typically followed by [facility] cardiology with a history of CAD status post 13 prior stents-last was 2017. He also has paroxysmal atrial fibrillation status post ablation on Eliquis. 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 Patient came to the hospital with 3 weeks of progressive the worsening chest discomfort. He describes pressure and discomfort across his entire chest which is worse with activity but also occurring at rest. Symptoms are improved with nitroglycerin which she is now taking multiple times daily. He presented to the emergency room last night due to his symptoms. EKG and serial troponins are unremarkable. 2D echo is pending. [facility] Disclaimer: The information contained in this section may have been updated after the patient was seen, as this information can be updated by other users. Medical History History of mechanical ventilation Chest pain History of shingles HTN (hypertension) HLD (hyperlipidemia) Back pain Pelvic fracture COPD (chronic obstructive pulmonary disease) Heart attack Afib Surgical History History of cardiac catheterization Social History Smoking Status: Never smoker alcohol intake: current alcohol intake frequency: holidays/special occasions only substance use type: denies use current occupational status: employed Travel in the last 8 weeks: None household members: spouse housing: house Have you lived/traveled outside US in past 30 days?: No Contact w/someone who lives/traveled outside US past 30 days?: No Exposure to someone with infectious disease in past 14 days?: No Do you have a fever (greater than 100.4 F or 38 C)?: No Have you tested positive for COVID-19: No Exposed to someone with COVID-19 in past 14 days?: No Do you have a sore throat?: No Do you have a cough?: No Do you have any weakness?: No Do you have any diarrhea?: No Are you experiencing any unusual bleeding?: No Do you have any muscle aches/pain?: No Do you have any abdominal pain?: No Are you experiencing loss of taste or smell?: No Review of Systems Constitutional Constitutional: Denies fatigue and Denies weakness Eyes Eyes: Denies loss of vision ENT Ears, Nose, Mouth, and Throat: Denies hearing loss and Denies vertigo *Cardiovascular Cardiovascular: Reports chest pain, Denies dyspnea and Denies syncope *Respiratory Respiratory: Denies cough and Denies dyspnea *Gastrointestinal Gastrointestinal: Denies change in stool character, Denies nausea and Denies vomiting *Genitourinary Genitourinary: Denies difficulty urinating *Musculoskeletal Musculoskeletal: Denies muscle weakness Integumentary/Breasts Skin/Breast: Denies changing lesions *Neurologic Neurologic: Denies loss of vision, Denies syncope, Denies vertigo and Denies weakness Endocrine Endocrine: Denies fatigue Exam Data for Last 24 hours Vital signs and Labs for Last 24 Hours: Temp Pulse Resp BP Pulse Ox O2 Del Method O2 Flow Rate 97.9 F 75 16 142/88 H 95 Room Air 2 09/22/24 08:00 09/22/24 08:00 09/22/24 08:00 09/22/24 08:00 09/22/24 08:00 09/22/24 09:00 09/21/24 16:46 Laboratory Results - last 24 hr 09/21/24 09:54: WBC 10.2, RBC 5.26, Hgb 16.1, Hct 48.0, MCV 91.3, MCH 30.6, MCHC 33.5, RDW 13.1, Plt Count 226, MPV 11.1 H, Neut % (Auto) 65.5, Lymph % (Auto) 19.5, [place] % (Auto) 10.2 H, Eos % (Auto) 3.2, Baso % (Auto) 0.4, Neut # (Auto) 6.7, Lymph # (Auto) 2.0, [place] # (Auto) 1.0, Eos # (Auto) 0.3, Baso # (Auto) 0.0, D-Dimer 0.43, Sodium 136, Potassium 4.2, Chloride 100, Carbon Dioxide 27, Anion Gap 13.2, BUN 20, Creatinine 0.80, Estimated Creat Clear 92, Estimated GFR 96, Est GFR ( Amer) 117, Glucose 107 H, Calcium 8.5, Total Bilirubin 0.5, AST 41, ALT 49, Alkaline Phosphatase 65, Troponin I < 0.01, Total Protein 6.9, Albumin 4.3, Globulin 2.6, Albumin/Globulin Ratio 1.7, HCV Ab MEG w/Rflx PCR Qn Negative, HIV Ag/Ab Combo Qual Negative 09/21/24 13:15: Troponin I < 0.01 09/21/24 16:20: Troponin I < 0.01 09/21/24 18:00: SARS-CoV-2 (PCR) Not detected, Influenza Type A (PCR) Not detected, Influenza Type B (PCR) Not detected, RSV (PCR) Not detected, Rhinovirus (PCR) Not detected 09/22/24 05:53: WBC 9.9, RBC 5.19, Hgb 15.9, Hct 47.1, MCV 90.8, MCH 30.6, MCHC 33.8, RDW 13.1, Plt Count 202, MPV 11.5 H, Neut % (Auto) 71.1, Lymph % (Auto) 16.1, [place] % (Auto) 8.0, Eos % (Auto) 3.6, Baso % (Auto) 0.2, Neut # (Auto) 7.0, Lymph # (Auto) 1.6, [place] # (Auto) 0.8, Eos # (Auto) 0.4, Baso # (Auto) 0.0, Sodium 136, Potassium 4.1, Chloride 103, Carbon Dioxide 27, Anion Gap 10.1, BUN 18, Creatinine 0.60 L D, Estimated Creat Clear 92, Estimated GFR 134, Est GFR ( Amer) 163 D, Glucose 90, Calcium 8.5, Magnesium 2.1, Total Bilirubin 0.6, AST 36, ALT 41, Alkaline Phosphatase 60, Total Protein 6.3, Albumin 3.8 D, Globulin 2.5, Albumin/Globulin Ratio 1.5 I & O for Last 24 hours: Intake & Output 09/19/24 09/20/24 09/21/24 09/22/24 23:59 23:59 23:59 23:59 Intake Total 240 / 390 150 / 150 Output Total 0 / 0 Balance 240 / 390 150 / 150 Weight 201 lb 200 lb Constitutional Constitutional: no acute distress and cooperative *Routine HEENT Exam Eye: Present PERRL *Routine Respiratory Exam Respiratory: Present CTA bilaterally; Absent accessory muscle use, wheezes or crackles *Routine Cardiovascular Exam Cardiovascular: Present RRR, Normal S1 and Normal S2; Absent murmur, gallop or rubs *Routine Abdominal Exam Abdominal: Present soft; Absent tenderness *Routine Extremities Exam Extremities: Present pulses intact; Absent cyanosis or edema *Routine Skin Exam Skin: Present intact; Absent erythema or wounds *Routine Neurological Exam Neurological: Present alert and oriented X3 Routine Psychiatric Exam Psychiatric: Present cooperative Meds Home Medications and Allergies Home Medications ?Medication ?Instructions ?Recorded ?Confirmed ?Type aspirin 81 mg tablet,delayed 81 mg PO DAILY 11/04/18 09/21/24 History release (Adult Low Dose Aspirin) atorvastatin 80 mg tablet 80 mg PO HS 11/04/18 09/21/24 History lisinopril 5 mg tablet 5 mg PO DAILY 90 days 11/04/18 09/21/24 History apixaban 5 mg tablet (Eliquis) 5 mg PO BID 09/21/24 09/21/24 History loratadine-pseudoephedrine ER 10 1 tab PO DAILY 09/21/24 09/21/24 History mg-240 mg tablet,extended [id number] (Loratadine-D) nitroglycerin 0.4 mg sublingual 0.4 mg sublingual Q5MINP PRN Chest 09/21/24 09/21/24 History tablet Pain valacyclovir 500 mg tablet 500 mg PO DAILY 09/21/24 09/21/24 History clopidogrel 75 mg tablet 75 mg PO DAILY 30 days #30 tabs 09/22/24 Rx New Prescriptions to Start Prescriptions: clopidogrel Kj Christiansen Allergies Allergy/AdvReac Type Severity Reaction Status Date / Time No Known Allergies Allergy Verified 11/27/19 14:04 Assessment and Plan *Assessment and plan (1) Unstable angina: Status: Acute Category: Medical Code(s): I20.0 - Unstable angina (2) Coronary artery disease: Status: Acute Category: Medical Code(s): I25.10 - Atherosclerotic heart disease of [place] coronary artery without angina pectoris (3) Paroxysmal atrial fibrillation: Status: Acute Category: Medical Code(s): I48.0 - Paroxysmal atrial fibrillation Plan CAD with Class 4 Unstable Angina - known CAD with 13 prior stents (last 2016) - presented with worsening anginal episodes at request requiring frequent Ntg use - EKG: SR without acute ischemic changes - Serial Trop: nml - cont DAPT, statin, add BB - Discussed med management vs LHC with patient and his and given his history and severity of symptoms they prefer LHC which is reasonable Htn - well controlled - cont Lisinopril, add Coreg High Chol - cont high dose statin Addendum: successful stenting of RCA today CV DC Meds: -ASA 81mg daily for 5 days -Plavix 75 mg 1 p.o. daily -Eliquis 5 mg 1 p.o. twice daily -Atorvastatin 80 mg 1 p.o. nightly -Lisinopril 5 mg 1 p.o. daily -Coreg 3.125 mg 1 p.o. twice daily -Nitroglycerin sublingual 0.4 mg as needed chest pain *Pt needs f/u with Cardiology 1-2 weeks post discharge.
[2024-09-22] MEDS: diphenhydrAMINE 50MG/ML VIAL 50 MG IV (11:25)
[2024-09-22] MEDS: LIDOCAINE 1% 10ML MDV 20 ML IJ (11:25)
[2024-09-22] MEDS: MIDAZOLAM HCL 1MG/ML 5ML VIAL 1 MG IV (11:25)
[2024-09-22] MEDS: 0.9 % SODIUM CHLORIDE 500 ML 25 ML IV (11:26)
[2024-09-22] MEDS: HEPARIN 1,000 UNITS/500ML NS (CATH LAB) 3000 UNIT IV (11:26)
[2024-09-22] MEDS: NITROGLYCERIN 800MCG/8ML SYR (CATH LAB) 800 MCG IA (11:26)
[2024-09-22] MEDS: HEPARIN 1,000 UNITS/ML 10ML VIAL (CATH LAB) 10000 UNIT IV (11:27)
[2024-09-22] MEDS: VERAPAMIL 2.5MG/ML 2ML VIAL 2.5 MG IV (11:31)
[2024-09-22] MEDS: CLOPIDOGREL 300MG TABLET 600 MG PO (12:10)
[2024-09-22] MEDS: IOPAMIDOL-370 (76%);100ML BOTTLE 90 ML IV (12:40)
--- NOTE | 2024-09-22 12:42 | EXP.DC.SUM ---
General Admission date:: 09/21/24 HPI HPI HPI: Abdias Peng is a 69-year-old male with a medical history significant for CAD s/p 13 stents (last 2016, [facility]), former 30 pack smoker, Eliquis s/p ablation on Eliquis, hypertension, shingles who presents with 3 weeks of progressive intermittent chest pains. He states chest pains are diffuse, not midsternal, and did have an episode of associated diaphoresis though this was after exertion. He states the chest pains are also present with rest, no associated shortness of breath. Not related to eating. Does have a history of acid reflux a couple times a week. Patient's reached out to [facility] certified pharmacy tech, but he is out of town. Advised to go to the ED if chest pains persist. Workup in the ED significant for negative troponin, EKG unremarkable for acute ischemic findings. Dx are also unremarkable. Case discussed with ED provider and decision was made to admit patient for unstable angina. Hospital Course Hospital Course Hospital Course: Abdias Peng is a 69-year-old male with a medical history significant for CAD s/p 13 stents (last 2016, [facility]), former 30 pack smoker, Eliquis s/p ablation on Eliquis, hypertension, shingles who presents with 3 weeks of progressive intermittent chest pains. He states chest pains are diffuse, not midsternal, and did have an episode of associated diaphoresis though this was after exertion. He states the chest pains are also present with rest, no associated shortness of breath. Not related to eating. Does have a history of acid reflux a couple times a week. Patient's reached out to [facility] certified pharmacy tech, but he is out of town. Advised to go to the ED if chest pains persist. Workup in the ED significant for negative troponin, EKG unremarkable for acute ischemic findings. Dx are also unremarkable. Case discussed with ED provider and decision was made to admit patient for unstable angina. #Chest pain #Unstable angina #GERD ? Progressive diffuse chest pains even at rest for the past 3 weeks. ? History of CAD with 13 stents, follows with Lindsey Stokes advised to go to the ED if symptoms persist. His certified pharmacy tech is out of town. ? Negative troponin, EKG without acute ischemic findings. LUPIS score 3. Currently chest pain-free. ? Cardiology consulted, s/p PCI with AYDE x 2 in the RCA. Tolerated procedure well. ? ECHO reveals normal biventricular function. Respiratory panel negative. ? Started Plavix 75 mg, Coreg 3.125 mg twice daily. Continue aspirin 81 mg, atorvastatin 80 mg. ? Started Protonix 40 mg nightly for GERD. ? Will follow-up with cardiology within 2 weeks. #Hypertension ? Resumed home lisinopril 5 mg. #Eliquis s/p ablation ? Currently rate controlled. Continue Eliquis, started Coreg as above. #History of shingles ? Resume home valacyclovir. Exam Data for Last 24 hours Vital signs and Labs for Last 24 Hours: Temp Pulse Resp BP Pulse Ox O2 Del Method O2 Flow Rate 97.9 F 74 20 134/72 92 L Room Air 2 09/22/24 08:00 09/22/24 12:21 09/22/24 12:21 09/22/24 12:21 09/22/24 12:21 09/22/24 12:21 09/21/24 16:46 Laboratory Results - last 24 hr 09/21/24 09:54: D-Dimer 0.43 09/21/24 13:15: Troponin I < 0.01 09/21/24 16:20: Troponin I < 0.01 09/21/24 18:00: SARS-CoV-2 (PCR) Not detected, Influenza Type A (PCR) Not detected, Influenza Type B (PCR) Not detected, RSV (PCR) Not detected, Rhinovirus (PCR) Not detected 09/22/24 05:53: WBC 9.9, RBC 5.19, Hgb 15.9, Hct 47.1, MCV 90.8, MCH 30.6, MCHC 33.8, RDW 13.1, Plt Count 202, MPV 11.5 H, Neut % (Auto) 71.1, Lymph % (Auto) 16.1, [place] % (Auto) 8.0, Eos % (Auto) 3.6, Baso % (Auto) 0.2, Neut # (Auto) 7.0, Lymph # (Auto) 1.6, [place] # (Auto) 0.8, Eos # (Auto) 0.4, Baso # (Auto) 0.0, Sodium 136, Potassium 4.1, Chloride 103, Carbon Dioxide 27, Anion Gap 10.1, BUN 18, Creatinine 0.60 L D, Estimated Creat Clear 92, Estimated GFR 134, Est GFR ( Amer) 163 D, Glucose 90, Calcium 8.5, Magnesium 2.1, Total Bilirubin 0.6, AST 36, ALT 41, Alkaline Phosphatase 60, Total Protein 6.3, Albumin 3.8 D, Globulin 2.5, Albumin/Globulin Ratio 1.5 I & O for Last 24 hours: Intake & Output 09/19/24 09/20/24 09/21/24 09/22/24 23:59 23:59 23:59 23:59 Intake Total 240 / 390 150 / 150 Output Total 0 / 0 Balance 240 / 390 150 / 150 Weight 91.172 kg 90.718 kg Constitutional Constitutional: no acute distress *Routine HEENT Exam Head: Present normocephalic Eye: Present EOMI and PERRL ENT: Present mucous membranes moist *Routine Neck Exam Neck: Present supple; Absent lymphadenopathy *Routine Respiratory Exam Respiratory: Present CTA bilaterally *Routine Cardiovascular Exam Cardiovascular: Present RRR *Routine Abdominal Exam Abdominal: Present soft and normoactive bowel sounds; Absent tenderness *Routine Extremities Exam Extremities: Absent cyanosis, clubbing or edema *Routine Skin Exam Skin: Present warm; Absent rash *Routine Neurological Exam Neurological: Present alert and oriented X3 Results Data Completed and Pending Labs on day of discharge: Labs from last 24 hours 09/22/24 09/21/24 09/21/24 05:53 18:00 16:20 WBC 9.9 RBC 5.19 Hgb 15.9 Hct 47.1 MCV 90.8 MCH 30.6 MCHC 33.8 RDW 13.1 Plt Count 202 MPV 11.5 H Neut % (Auto) 71.1 Lymph % (Auto) 16.1 [place] % (Auto) 8.0 Eos % (Auto) 3.6 Baso % (Auto) 0.2 Neut # (Auto) 7.0 Lymph # (Auto) 1.6 [place] # (Auto) 0.8 Eos # (Auto) 0.4 Baso # (Auto) 0.0 D-Dimer Sodium 136 Potassium 4.1 Chloride 103 Carbon Dioxide 27 Anion Gap 10.1 BUN 18 Creatinine 0.60 L D Estimated Creat Clear 92 Estimated GFR 134 Est GFR ( Amer) 163 D Glucose 90 Calcium 8.5 Magnesium 2.1 Total Bilirubin 0.6 AST 36 ALT 41 Alkaline Phosphatase 60 Troponin I < 0.01 Total Protein 6.3 Albumin 3.8 D Globulin 2.5 Albumin/Globulin Ratio 1.5 SARS-CoV-2 (PCR) Not detected Influenza Type A (PCR) Not detected Influenza Type B (PCR) Not detected RSV (PCR) Not detected Rhinovirus (PCR) Not detected 09/21/24 09/21/24 13:15 09:54 WBC RBC Hgb Hct MCV MCH MCHC RDW Plt Count MPV Neut % (Auto) Lymph % (Auto) [place] % (Auto) Eos % (Auto) Baso % (Auto) Neut # (Auto) Lymph # (Auto) [place] # (Auto) Eos # (Auto) Baso # (Auto) D-Dimer 0.43 Sodium Potassium Chloride Carbon Dioxide Anion Gap BUN Creatinine Estimated Creat Clear Estimated GFR Est GFR ( Amer) Glucose Calcium Magnesium Total Bilirubin AST ALT Alkaline Phosphatase Troponin I < 0.01 Total Protein Albumin Globulin Albumin/Globulin Ratio SARS-CoV-2 (PCR) Influenza Type A (PCR) Influenza Type B (PCR) RSV (PCR) Rhinovirus (PCR) DS: Diagnosis Discharge Diagnosis (1) Unstable angina: Status: Acute Code(s): I20.0 - Unstable angina Meds Home Medications and Allergies Home Medications ?Medication ?Instructions ?Recorded ?Confirmed ?Type aspirin 81 mg tablet,delayed 81 mg PO DAILY 11/04/18 09/21/24 History release (Adult Low Dose Aspirin) atorvastatin 80 mg tablet 80 mg PO HS 11/04/18 09/21/24 History lisinopril 5 mg tablet 5 mg PO DAILY 90 days 11/04/18 09/21/24 History apixaban 5 mg tablet (Eliquis) 5 mg PO BID 09/21/24 09/21/24 History loratadine-pseudoephedrine ER 10 1 tab PO DAILY 09/21/24 09/21/24 History mg-240 mg tablet,extended [id number] (Loratadine-D) nitroglycerin 0.4 mg sublingual 0.4 mg sublingual Q5MINP PRN Chest 09/21/24 09/21/24 History tablet Pain valacyclovir 500 mg tablet 500 mg PO DAILY 09/21/24 09/21/24 History carvedilol 3.125 mg tablet (Coreg) 3.125 mg PO BID 30 days #60 tabs 09/22/24 Rx clopidogrel 75 mg tablet 75 mg PO DAILY 30 days #30 tabs 09/22/24 Rx New Prescriptions to Start Prescriptions: carvedilol [Coreg] Kj Christiansen clopidogrel Kj Christiansen Allergies Allergy/AdvReac Type Severity Reaction Status Date / Time No Known Allergies Allergy Verified 11/27/19 14:04 Discharge Plan Disposition Patient Disposition: Home, Self-Care Condition: Fair Follow up Plan Follow up with: Xiang Mendosa MD [Staff Physician] - 09/29/24 1:45 pm Prescriptions/Medication Reconciliation: New clopidogrel 75 mg Tablet 75 mg PO DAILY 30 Days Qty: 30 0RF carvedilol [Coreg] 3.125 mg tablet 3.125 mg PO BID 30 Days Qty: 60 0RF Rx Instructions: must administer with a meal/food Continued lisinopril 5 mg tablet 5 mg PO DAILY 90 Days atorvastatin 80 mg tablet 80 mg PO HS aspirin [Adult Low Dose Aspirin] 81 mg tablet,delayed release (DR/EC) 81 mg PO DAILY Loratadine-D 10-240 mg tablet extended release 24 hr 1 tab PO DAILY Patient Comments: TAKE 1 TABLET BY MOUTH EVERY DAY Eliquis 5 mg tablet 5 mg PO BID nitroglycerin 0.4 mg tablet, sublingual 0.4 mg sublingual Q5MINP PRN (Reason: Chest Pain) valacyclovir 500 mg tablet 500 mg PO DAILY Problem Reconciliation Problems Reviewed?: Yes Patient Discharge Instructions Patient Instructions: Angina, DI for Cardiac Catheterization, DI for Surgical Site Infection Print Language: Arabic Providers Primary Care Provider: Dilma Horta Admit Provider: Kj Christiansen Attending Provider: Kj Christiansen
[2024-09-22 12:44] LABS: CATHL Activated Clotting Time 339 SEC (74-125)
[2024-09-22] MEDS: ROPINIROLE 1MG TABLET 2 MG PO (13:05)
[2024-09-22] MEDS: FAMOTIDINE 20MG TABLET 40 MG PO (13:06)
--- NOTE | 2024-09-22 14:45 | ECG_ITS ---
APPROVED REPORT Exam: Resting ECG HR:67 bpm ECG Measurements Heart Rate 67 AXES NM 139 P 48 QRSd 93 QRS 13 QT 395 T 79 QTc 410 Conclusion SINUS RHYTHM WITH OCCASIONAL VENTRICULAR PREMATURE COMPLEXES MODERATE ST DEPRESSION [0.05+ mV ST DEPRESSION] ABNORMAL ECG UNCONFIRMED REPORT Electronically signed by : Wolfgang Rodrigues MD 09/23/2024 16:22:49
[2024-09-22] MEDS: 0.9 % SODIUM CHLORIDE 1000ML 500 ML 999 ML IV (15:32)
[2024-09-22] MEDS: ONDANSETRON 4MG/2ML VIAL 4 MG IV (15:32)
--- NOTE | 2024-09-22 17:32 | CA_ITS ---
APPROVED REPORT EXAM: Comprehensive 2D, Doppler, and color-flow Echocardiogram Accountant Manager: Leticia Shin CRT Ht: 6 ft 0 in Wt: 200lbs BSA: 2.13 BP: 128/92 mmHg Indications: Chest Pain, Congestive Heart Failure, COPD, Hyperlipidemia, Hypertension/HDD, shingles, 13 stents, ablation pt on eliquis, afib, shingles 2D Dimensions LA Volume 55.10 mL LA Volume Index 25.30 mL/m2 (M/F) 16-34 M-Mode Dimensions RVDd 2.43 cm (0.9-2.6) LA Diam 2.85 cm (1.9-4.0) LVDd 3.82 cm (3.5-5.7) LVDs 2.46 cm (3.5-5.7) IVSd 1.61 cm (0.6-1.1) PWd 1.07 cm (0.6-1.1) EF (Teich) 65.90% FS 35.60% EDV (Teich) 62.70 mL TAPSE 2.82 (<1.7) ESV (Teich) 21.40 mL LV Diastology E Decel Time 167 (160-240 msec) E/A Ratio 0.84 MED A' 8.40 cm/s LAT A' 13.10 cm/s Aortic Valve AO Peak GR. 8.10 mmHg Mitral Valve MV E Max [place]. 49.0 (40-130 cm/s) MV A Velocity 59.0 (40-130 cm/s) E/A Ratio 0.84 MV PHT 49.0 ms Pulmonary Valve PV Peak Velocity 140.0 (50-150 cm/s) Tricuspid Valve TR P. Velocity 234.00 cm/s RAP Estimate 10.00 mmHg RVSP 31.90 mmHg Left Ventricle The left ventricle is normal size. The left ventricular systolic function is normal. The left ventricular ejection fraction is within the normal range. There is increased LV wall thickness. There is normal LV segmental wall motion. The left ventricular diastolic function is normal. LVEF is 60%. Right Ventricle The right ventricle is normal size. The right ventricular systolic function is normal. Atria The left atrium size is normal. The right atrium size is normal. There is no Doppler evidence of interatrial shunt. Aortic Valve The aortic valve is mildly thickened. There is no aortic valvular stenosis. No aortic regurgitation is present. Mitral Valve The mitral valve is normal in structure. No evidence of mitral valve stenosis. Trace mitral valve regurgitation noted. Tricuspid Valve Tricuspid valve is grossly normal in structure and function. Trace tricuspid regurgitation. There is insufficient TR jet to estimate RVSP. Pulmonic Valve The pulmonary valve is normal in structure. Trace pulmonic regurgitation. Great Vessels The aortic root is normal in size. IVC is normal in size and collapses >50% with inspiration. Pericardium There is no pericardial effusion. Other Information Study Quality: Fair Conclusion Normal biventricular systolic function. No significant valvular stenosis or regurgitation. Electronically signed by : Alis Mendosa MD 09/22/2024 12:49:18
--- NOTE | 2024-09-22 18:02 | PC.NURSE ---
Addendum entered by Lili Frederick RN 09/22/24 18:09: Emesis was clear in color, with a mucous consistency. Original Note: patients called out stating the patient was very nauseous. when i assessed patient he was lying over the trash can in the bathroom. patient did not fall, he was leaning over trash can vomiting. patient presented to be diaphoretic and pale. SRNA and i assisted patient to chair, assessed vital signs. BP 123/80 HR 78, RR22, O2 97% RA. patient did not c/o chest pain or any pain at all. MD notified. EKG obtained. IV zofran and 500ml NS bolus given per OCT. Assessed patient after bolus and zofran administration, patient stated he felt so much better. patient presented to gain color back in his face and appeared to have more energy.
[2024-09-22 18:31] LABS: POC Glucose,Bedside 118 (70-110)
--- NOTE | 2024-09-23 10:40 | SW/DCPLANNER ---
Spoke with patient on the phone. Patient stated that he is doing very well just a little tired and occasionally some chest grabs. Patient stated that he is aware of his upcoming appointments. Patient stated that clinic pharmacy brought his medicine to him before he was discharged. Patient stated that he would like to know who to contact to [facility] about the care he recieved while here so i gave him the hospital number to ask for [facility]. Patient stated that he has no other questions or concerns at this time. Aracely Shepherd
== END 2024-09-22 17:47 | disposition home or self-care (01) ==
LOC: ER 10:14 → 2ND 12:09
PROVIDERS: Internal Medicine; Admitting Provider Student in an Organized Health Care Education/Training Program; Emergency Provider Student in an Organized Health Care Education/Training Program; PCP Family Medicine; Visit Provider Student in an Organized Health Care Education/Training Program
DX: I25.110 Atherosclerotic heart disease of native coronary artery with unstable angina pectoris (principal); I48.0 Paroxysmal atrial fibrillation; I10 Essential (primary) hypertension; E78.5 Hyperlipidemia, unspecified; J44.9 Chronic obstructive pulmonary disease, unspecified; Z95.5 Presence of coronary angioplasty implant and graft; Z87.891 Personal history of nicotine dependence; Z79.01 Long term (current) use of anticoagulants; Z79.899 Other long term (current) drug therapy
CPT/HCPCS: 36415; 71045; 80053; 82962; 83735; 84484; 85025; 85347; 85378; 86803; 87389; 87631; 92928; 93005; 93306; 93458; 99152; 99291; C1725; C1769; C1874; C9600; G0378; J1200; J1644; J2250; J2405; J7030; Q9967

== ENCOUNTER 2024-09-25 07:30 | Outpatient (CLI) | payer MEDICARE, OTHER, SELFPAY ==
[2024-09-25 07:42] LABS: MANUAL DIFFERENTIAL MANUAL DIFFERENTIAL (MANUAL DIFF)
[2024-09-25 07:51] LABS: Basophils % 0.3 % (0.1-2.0); Eosinophils # 0.1 K/mm3 (0.0-0.4); Eosinophils % 1.6 % (0.1-12.0); Hematocrit 45.9 % (42.0-52.0); Hemoglobin 15.4 g/dL (14.1-18.0); Lymphocytes # 2.2 K/mm3 (0.7-4.5); Lymphocytes % 24.9 % (10-50); Mean Corpuscular HGB Conc 33.6 g/dL (31.8-35.4); Mean Corpuscular Hemoglobin 30.5 pg (27.0-31.2); Mean Corpuscular Volume 90.9 fl (80-94); Monocytes % 10.8 % (1.7-9.3); Neutrophils # 5.5 K/mm3 (1.8-7.8); Neutrophils % 61.6 % (37.0-80.0); Platelet Count 185 K/mm3 (142-424); Red Blood Count 5.05 M/mm3 (4.60-6.20); Red Cell Distribution Width 13.2 % (11.5-17.5); White Blood Count 8.9 K/mm3 (4.8-10.8)
[2024-09-25 10:12] LABS: Eosinophils % 2 % (0-3); Lymphocytes % 28 % (10-50); Monocytes % 14 % (2-9); Neutrophils % 56 % (42-76); Total Cells Counted 50
[2024-09-25 10:13] LABS: Platelet Estimate Normal; RBC Morphology Normal
[2024-09-25 10:14] LABS: Giant Platelets 2+
== END 2024-09-25 23:59 | disposition home or self-care (01) ==
LOC: LAB 07:34
PROVIDERS: PCP Family Medicine; Visit Provider Student in an Organized Health Care Education/Training Program
DX: Z95.5 Presence of coronary angioplasty implant and graft (principal); I10 Essential (primary) hypertension
CPT/HCPCS: 36415; 85007; 85014; 85018; 85048; 85049

== ENCOUNTER 2024-09-29 14:29 | Outpatient (CLI) | payer MEDICARE, OTHER, SELFPAY ==
[2024-09-29 15:04] LABS: Basophils % 0.3 % (0.1-2.0); Eosinophils # 0.1 K/mm3 (0.0-0.4); Eosinophils % 0.9 % (0.1-12.0); Hematocrit 47.9 % (42.0-52.0); Hemoglobin 16.3 g/dL (14.1-18.0); Lymphocytes # 2.2 K/mm3 (0.7-4.5); Lymphocytes % 20.6 % (10-50); Mean Corpuscular Hemoglobin 30.5 pg (27.0-31.2); Mean Corpuscular Volume 89.7 fl (80-94); Mean Platelet Volume 11.3 fl (7.4-10.4); Monocytes # 0.9 K/mm3 (0.1-1.0); Monocytes % 8.4 % (1.7-9.3); Neutrophils # 7.5 K/mm3 (1.8-7.8); Neutrophils % 69.2 % (37.0-80.0); Platelet Count 203 K/mm3 (142-424); Red Blood Count 5.34 M/mm3 (4.60-6.20); White Blood Count 10.9 K/mm3 (4.8-10.8)
[2024-09-29 16:08] LABS: Albumin Level 4.3 g/dl (3.5-5.0); Chloride 99 mmol/L (98-107)
[2024-09-29 16:09] LABS: Potassium 4.5 mmoL/L (3.5-5.1); Sodium 137 mmol/L (136-145)
[2024-09-29 16:11] LABS: Bilirubin,Unconjugated 0.5 mg/dL (0.0-1.1); Blood Urea Nitrogen 19 mg/dl (9-20); Estimated Glomerular Filt Rate 112 ml/min (>60); GFR (African American) 136 ML/MIN (>60)
[2024-09-29 16:12] LABS: Alanine Aminotransferase 52 U/L (12-78); Alkaline Phosphatase 57 U/L (38-126); Anion Gap 12.5 mEq/L (5-15); Aspartate Amino Transferase 33 U/L (17-59); Bilirubin,Direct 0.1 mg/dl (0.0-0.4); Bilirubin,Indirect 0.5 mg/dL (0.0-0.9); Bilirubin,Total 0.6 mg/dl (0.2-1.3); Calcium 9.4 mg/dl (8.4-10.2); Carbon Dioxide 30 mmol/L (22.0-30.0); Chol/HDL Ratio 3.2 (1-3.5); Cholesterol 192 mg/dl (140-200); Glucose 94 mg/dl (74-100); HDL Cholesterol 60 mg/dl (40-60); Total Protein,Serum 6.6 g/dl (6.3-8.2); Triglycerides 96 mg/dl (30-150); VLDL Cholesterol 19 mg/dL (0-40)
[2024-09-29 16:24] LABS: Direct LDL Cholesterol 90.24 mg/dL (100-129)
[2024-09-29 16:29] LABS: Free T4 (Free Thyroxine) 1.12 ng/dl (0.78-2.19)
[2024-09-29 17:05] LABS: Thyroid Stimulating Hormone 1.96 uIU/mL (0.465-4.68)
== END 2024-09-29 23:59 | disposition home or self-care (01) ==
LOC: LAB 14:30
PROVIDERS: PCP Family Medicine; Visit Provider Nurse Practitioner
DX: I48.0 Paroxysmal atrial fibrillation (principal); I25.10 Atherosclerotic heart disease of native coronary artery without angina pectoris; E78.5 Hyperlipidemia, unspecified; I10 Essential (primary) hypertension
CPT/HCPCS: 36415; 80048; 80061; 80076; 83735; 84439; 84443; 85025

== ENCOUNTER 2024-11-05 12:45 | Outpatient (RCR) | payer MEDICARE, OTHER, SELFPAY | END 2024-11-27 14:00 | disposition home or self-care (01) | LOC: CR 12:45 | PROVIDERS: Visit Provider Nurse Practitioner | DX: I25.10 Atherosclerotic heart disease of native coronary artery without angina pectoris (principal) | CPT/HCPCS: 93798 ==

== ENCOUNTER 2024-12-17 11:16 | Outpatient (CLI) | payer MEDICARE, OTHER, SELFPAY ==
--- OUTSIDE RECORDS SUMMARY | 2024-12-17 11:19 | XMS_ITS | Data Portability ---
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 Overall he has been doing well and has retired from the [employer] and that has reduced his stress significantly. States he had been drinking a lot of alcohol every night but not as much now since mcfp and we encourage him to avoid excessive use. Labs are all normal other than modest increase in liver function tests. He receives the flu vaccine. He should consider the shingrix series. He completely declines covid vaccines and thinks it is all fake. He has known history of significant premature CAD and presently is asymptomatic. He is maintained on blood thinner and high dose statin therapy. He has restless leg syndrome and we will begin a trial of requip. He does take daily anti viral for recurrent herpes simplex. He rarely takes occasional pain medication, and keep tylenol 3 on hand as he has known severe degenerative disc disease and has had a remote and significant back injury and pelvic fractures that required surgery in 2009. We discussed 3 exercises/stretch es to help including the cat-cow, superman and bridges as he stands all day. The back tends to flare the most after he has to unload and lift items. He does describe some Raynauds especially if he is cold. The beta todd increases this risk but should not be stopped. He keeps some hand warmers. He had a normal colonoscopy ten years ago so we will recommend the cologuard screen. We encourage him to continue his healthy lifestyle. Not available 04/22/2021 08:41:24 04/24/2022 04/24/2022 Mr Cassidy presents for his wellness visit. Overall he has been doing well and has retired from the [employer] and that has reduced his stress significantly. States he had been drinking a lot of alcohol every night but not as much now since mcfp and we encourage him to avoid excessive use. Labs are all normal other than modest increase in liver function tests. He is followed by the [place] and those results are in thei He receives the flu vaccine. He should consider the shingrix series. He completely declines covid vaccines and thinks it is all fake. He also declines a flu vaccine this year stating he may take another one every several years. He has known history of significant premature CAD and presently is asymptomatic. He is maintained on blood thinner and high dose statin therapy. He recently experienced a He has restless leg syndrome and we will begin a trial of requip. He does take daily anti viral for recurrent herpes simplex. He rarely takes occasional pain medication, and keep tylenol 3 on hand as he has known severe degenerative disc disease and has had a remote and significant back injury and pelvic fractures that required surgery in 2009. We discussed 3 exercises/stretch es to help including the cat-cow, superman and bridges as he stands all day. The back tends to flare the most after he has to unload and lift items. He does describe some Raynauds especially if he is cold. The beta otdd increases this risk but should not be stopped. He keeps some hand warmers. He had a normal colonoscopy ten years ago and had a negatives cologuard screen in 2019 so that will be due again next year. We encourage him to continue his healthy lifestyle. brendan Not available 04/24/2022 22:02:58 05/24/2023 05/24/2023 Mr Cassidy presents for his wellness visit. Overall he has been doing well and has retired from the [employer] and that has reduced his stress significantly. He had a recent successful ablation procedure after three failed cardioversions so now is in a sinus rhythm. He will need to remain on the Eliquis. He states he has stopped drinking alcohol every night and is not drinking anymore. He understands that alcohol significantly increases risk for atrial fibrillation and he is aware of that. Labs are all normal and the previous increase in liver function tests have normalized. He declines the flu and pneumonia vaccines. He should consider the shingrix series. He completely declines covid vaccines and thinks it is all fake. He has a known history of significant premature CAD and previous myocardial infarctions and presently is asymptomatic. He is maintained on blood thinner and high dose statin therapy. He has restless leg syndrome that is doing better also since he stopped drinking. He does take a daily anti viral for recurrent herpes simplex. He rarely takes occasional pain medication, and keep tylenol 3 on hand as he has known severe degenerative disc disease and has had a remote and significant back injury and pelvic fractures that required surgery in 2009. He has a past history of Raynaud's phenomenon especially if he is cold. The beta todd increases this risk but should not be stopped. He keeps some hand warmers. He has chronic allergic rhinitis and the single claritin D has been the only medication that helps and that will be prescribed locally as his insurance does not cover it, so he can use the GoodRX coupon locally that he cannot use with mail order. He had a normal colonoscopy over ten years ago and had a negatives cologuard screen in 2020 so that is due again this year. He will agree to a one time abdominal aortic aneurysm screening as well as the low dose CT lung cancer screen with his past history of smoking. A calculated ten year CV risk is 10.80%. We encourage him to continue his healthy lifestyle. brendan Not available 05/24/2023 22:41:48 05/27/2024 05/27/2024 Mr. Cassidy presents for his wellness visit. Overall he has been doing well and has retired from the [employer] and that has reduced his stress significantly. He had a successful ablation procedure in 2022 after three failed cardioversions, so now is in a sinus rhythm. He will need to remain on the Eliquis though as he is still at risk of a recurrence. He states he has stopped drinking alcohol every night and is not drinking anymore. He understands that alcohol significantly increases risk for atrial fibrillation. Labs are all normal and the previous increase in liver function tests have normalized. He declines the flu and pneumonia vaccines. He should consider the shingrix series. He completely declines covid vaccines and thinks it is all fake. He has a known history of significant premature CAD and previous myocardial infarctions and presently is asymptomatic. He is maintained on blood thinner and high dose statin therapy. He has restless leg syndrome that is doing better also since he stopped drinking. He does take a daily anti-viral for recurrent herpes simplex. He tends to take a dose of tylenol 3 every night for his known severe degenerative disc disease. He has had a remote and significant back injury and pelvic fractures that required surgery in 2009. He has a past history of Raynaud's phenomenon especially if he is cold. The beta todd increases this risk but should not be stopped. He keeps some hand warmers. He has chronic allergic rhinitis and the single claritin D has been the only medication that helps and is prescribed locally. He had a normal colonoscopy over ten years ago and had negative cologuard screens in 2019 and 2022 so will be due again in 2025. He had a negative abdominal aortic aneurysm screening last year. He also had low dose CT lung cancer screens in 2019 and 2020. We will recommend another screen this year with his past history of smoking if his insurance will cover it. A calculated ten year cardiovascular risk is 14.73%. We encourage him to continue his healthy lifestyle. Not available 05/28/2024 22:04:54 09/25/2024 09/25/2024 He has been having a recurrent pruritic and travelling eruption on his body for over a month. 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 He had stents on Sunday so now is also on clopidogrel so we will recommend he stop the low dose aspirin as that is the most likely medication etiology. We will give a dose of decadron IM today. He had a course of prednisone ten days ago. We will order a prednisone tapered pack as well as anti-histamines to block both pathways. If he is not improving when he finishes the medications, an log turner referral would be in order. Not available 09/25/2024 20:42:29 Plan of Treatment Reminders Order Date Submit Date Provider Last Modified By Organization Details Last Modified Time Details Appointments None recorded. Lab noninvasive colorectal cancer DNA + occult blood screening, QL, stool 2022 023 [place] Not available 3 07:47:30 PSA, serum or plasma 2021 022 [facility], [address] [facility], [place], [address], 2 07:26:14 Referral log turner referral 2024 025 [place] [id number] Chuy Hay MD, [address], [facility], [place], [address], 5 11:17:30 Procedures None recorded. Surgeries None recorded. Imaging LDCT, chest, for lung cancer screening 2023 024 [facility] (Scheduling), [address] [facility], [place], [address], 4 09:58:19 [place], screening for abdominal aortic aneurysm 2022 023 [facility] (Scheduling), [address], [place], [address], 3 11:08:18 LDCT, chest, for lung cancer screening [address] [place] [address] (Scheduling), [address], [place], [address], 3 10:25:32 Medication Orders loratadine 10 mg tablet 2024 025 [email or web address] 12 [facility] #[id number], [address], [place], [place], [id number], 5 10:28:50 famotidine 20 mg tablet 2024 025 [place] [facility] #[id number], [address], [place], [place], [id number], 5 16:12:59 dexamethaso ne sodium phosphate 4 mg/mL injection solution 2024 025 rallim[facility] #[id number], [address] [facility] [address], [place], [id number], 5 16:12:48 methylpredn isolone 4 mg tablets in a dose pack 2024 025 [facility] #, [address] [facility] [address], [place], [id number], 5 16:12:55 loratadine- pseudoephed rine ER 10 mg-240 mg tablet,exte nded [id number] 2023 024 [facility] #, [address] [address] [address], [place], [id number], 4 10:18:44 acetaminoph en 300 mg-codeine 30 mg tablet 2023 024 [facility] #, [address] [address] [address], [place], [id number], 4 10:18:58 loratadine- pseudoephed rine ER 10 mg-240 mg tablet,exte nded [id number] 2022 023 [facility], [address] [facility] [address], [place], [id number], 3 14:52:27 acetaminoph en 300 mg-codeine 30 mg tablet 2022 023 [facility] #, [address] [address] [address], [place], [id number], 3 14:52:34 acetaminoph en 300 mg-codeine 30 mg tablet 2021 022 [facility] [place], [address], 09:50:59 ropinirole 0.5 mg tablet 2020 021 [facility] [place], [address], 15:40:01 Patient TargetsNo targets recorded. Patient Instructions Encounter Date Encounter Id Patient Instructions Last Modified By Organization Details Last Modified Time 04/21/2021 [id number] taking direct or al anticoagulants safely: care instructions Not available 04/22/2021 08:42:16 learning about healthy weight Not available 04/22/2021 08:42:16 04/24/2022 [id number] taking direct or al anticoagulants safely: care instructions Not available 04/24/2022 09:50:50 dash diet: care instructions Not available 04/24/2022 09:55:55 05/24/2023 [id number] taking direct or al anticoagulants safely: care instructions Not available 05/24/2023 14:52:20 dash diet: care instructions Not available 05/24/2023 14:52:20 05/27/2024 [id number] taking direct or al anticoagulants safely: care instructions Not available 05/27/2024 10:18:32 dash diet: care instructions Not available 05/27/2024 10:18:32 09/25/2024 hives: care instructions Not available 09/25/2024 16:12:49 Reason for Referral Therapist'S Assistant Referral for Aller gic urticaria Referring Physician: Dilma Horta, Family Medicine, Encounter Date: 09/25/2024 Results Created Date Observation Date Name Description Value Unit Range Abnormal Flag Note LastModifiedBy Organization Detail LastModifiedTime 04/12/20 21 04/13/2021 LIPID PANEL , STAND [place]LLY cholesterol, total 134 mg/dL <200 normal Not Available [facility] [address], [place], [address], 04/13/2021 08:05:57 04/12/20 21 04/13/2021 LIPID PANEL , [place]AND [place] HDL cholesterol 35 mg/dL > or = 40 low Not Available [facility] [address], [place], [address], 04/13/2021 08:05:57 04/12/20 21 04/13/2021 LIPID PANEL , STAND [place] triglyceride s 85 mg/dL <150 normal Not Available [facility] [address] [facility], [place], [address], 04/13/2021 08:05:57 04/12/20 21 04/13/2021 LIPID PANEL , [place]AND [place] LDL-choleste rol 82 mg/dL _(sarthak c) normal Refer ence range : <100 Yusra able range <100 mg/dL for prima ry preve ntion ; <70 mg/dL for patie nts with CHD or diabe tic patie nts with > or = 2 CHD risk facto rs. LDL-C is now calcu lated using the Amarilis n-Hop nica yuenu marlyn n, which is a valid ated novel miryam valiente r accur acy than the Fried chetna equat ion in the estim ation of LDL-C . Amarilis jackson SS et al. CHRISTINE. 2013; 310(1 9): 2061- 2068 (http ://ed ucati on.Qu Cody chino tics. com/f aq/FA Q164) Not Available [facility] [address], [place], [address], 04/13/2021 08:05:57 04/12/20 21 04/13/2021 LIPID PANEL , [place]AND [place] chol/HDLC ratio 3.8 (calc ) <5.0 normal Not Available [facility] [address], [place], [address], 04/13/2021 08:05:57 09/07/20 21 04/13/2021 LIPID PANEL , [place] non HDL cholesterol 99 mg/dL _(sarthak c) <130 normal For patie nts with diabe jairo plus 1 major ASCVD risk facto r, treat ing to a non-H DL-C goal of <100 mg/dL (LDL- C of <70 mg/dL ) is consi shayed a kikaa peivani c optio n. Not Available [facility] [address] [place], [address], 04/13/2021 08:05:57 04/12/20 21 04/13/2021 COMPR EHENS TAMMY METAB OLIC PANEL glucose 96 mg/dL 65-99 normal Fasti ng refer ence inter rubio Not Available [facility] [address] [facility], [place], [address], 04/13/2021 08:05:58 04/12/20 21 04/13/2021 COMPR EHENS TAMMY METAB OLIC PANEL urea nitrogen (BUN) 20 mg/dL 7-25 normal Not Available [facility] [address] [place], [address], 04/13/2021 08:05:58 04/12/20 21 04/13/2021 COMPR EHENS TAMMY METAB OLIC PANEL creatinine 0.57 mg/dL 0.70-1 .25 low For patie nts >49 years of age, the refer ence limit for Creat inine is appro ximat gama 13% highe r for peopl e ident ified as Afric an-Am rahel n. Not Available [facility] [address] [place], [address], 04/13/2021 08:05:58 04/12/20 21 04/13/2021 COMPR EHENS TAMMY METAB OLIC PANEL eGFR non-afr. malagasy 109 mL/mi n/1.7 3m2 > or = 60 normal Not Available [facility] [address] [place], [address], 04/13/2021 08:05:58 04/12/20 21 04/13/2021 COMPR EHENS TAMMY METAB OLIC PANEL eGFR 127 mL/mi n/1.7 3m2 > or = 60 normal Not Available [facility] [address] [place], [address], 04/13/2021 08:05:58 04/12/20 21 04/13/2021 COMPR EHENS TAMMY METAB OLIC PANEL BUN/creatini ne ratio 35 (calc ) 6-22 high Not Available [facility] [address] [place], [address], 04/13/2021 08:05:58 04/12/20 21 04/13/2021 COMPR EHENS TAMMY METAB OLIC PANEL sodium 143 mmol/ L 135-14 6 normal Not Available [facility] [address] [place], [address], 04/13/2021 08:05:58 04/12/20 21 04/13/2021 COMPR EHENS TAMMY METAB OLIC PANEL potassium 4.1 mmol/ L 3.5-5. 3 normal Not Available [facility] [address] [place], [address], 04/13/2021 08:05:58 04/12/20 21 04/13/2021 COMPR EHENS TAMMY METAB OLIC PANEL chloride 106 mmol/ L 98-110 normal Not Available [facility] [address] [place], [address], 04/13/2021 08:05:58 04/12/20 21 04/13/2021 COMPR EHENS TAMMY METAB OLIC PANEL carbon dioxide 29 mmol/ L 20-32 normal Not Available [facility] [address] [place], [address], 04/13/2021 08:05:58 04/12/20 21 04/13/2021 COMPR EHENS TAMMY METAB OLIC PANEL calcium 8.3 mg/dL 8.6-10 .3 low Not Available [facility] [address] [place], [address], 04/13/2021 08:05:58 04/12/20 21 04/13/2021 COMPR EHENS TAMMY METAB OLIC PANEL protein, total 6.1 g/dL 6.1-8. 1 normal Not Available [facility] [address] [place], [address], 04/13/2021 08:05:58 04/12/20 21 04/13/2021 COMPR EHENS TAMMY METAB OLIC PANEL albumin 3.4 g/dL 3.6-5. 1 low Not Available [facility] [address] [place], [address], 04/13/2021 08:05:58 04/12/20 21 04/13/2021 COMPR EHENS TAMMY METAB OLIC PANEL globulin 2.7 g/dL_ (calc ) 1.9-3. 7 normal Not Available [facility] [address] [place], [address], 04/13/2021 08:05:58 04/12/20 21 04/13/2021 COMPR EHENS TAMMY METAB OLIC PANEL albumin/glob ulin ratio 1.3 (calc ) 1.0-2. 5 normal Not Available [facility] [address] [place], [address], 04/13/2021 08:05:58 04/12/20 21 04/13/2021 COMPR EHENS TAMMY METAB OLIC PANEL bilirubin, total 0.8 mg/dL 0.2-1. 2 normal Not Available [facility] [address] [place], [address], 04/13/2021 08:05:58 04/12/20 21 04/13/2021 COMPR EHENS TAMMY METAB OLIC PANEL alkaline phosphatase 80 U/L 35-144 normal Not Available [facility] [address] [place], [address], 04/13/2021 08:05:58 04/12/20 21 04/13/2021 COMPR EHENS TAMMY METAB OLIC PANEL AST 50 U/L 10-35 high Not Available [facility] [address], [place], [address], 04/13/2021 08:05:58 04/12/2004/13/2021 COMPR EHENS TAMMY METAB OLIC PANEL ALT 67 U/L 9-46 high Not Available [facility] [address] [place], [address], 04/13/2021 08:05:58 04/12/2004/13/2021 TSH TSH 1.24 mIU/L 0.40-4 .50 normal Not Available [facility] [address] [place], [address], 04/13/2021 08:05:58 04/12/20 21 04/13/2021 CBC (INCL UDES DIFF/ PLT) white blood cell count 5.2 thous and/u L 3.8-10 .8 normal Not Available [facility] [address], [place], [address], 04/13/2021 08:05:59 04/12/20 21 04/13/2021 CBC (INCL UDES DIFF/ PLT) red blood cell count 4.93 arturo on/uL 4.20-5 .80 normal Not Available [facility] [address], [place], [address], 04/13/2021 08:05:59 04/12/20 21 04/13/2021 CBC (INCL UDES DIFF/ PLT) hemoglobin 15.1 g/dL 13.2-1 7.1 normal Not Available [facility] [address] [place], [address], 04/13/2021 08:05:59 04/12/2004/13/2021 CBC (INCL UDES DIFF/ PLT) hematocrit 44.8 % 38.5-5 0.0 normal Not Available [facility] [address] [place], [address], 04/13/2021 08:05:59 04/12/2004/13/2021 CBC (INCL UDES DIFF/ PLT) MCV 90.9 fL 80.0-1 00.0 normal Not Available [facility] [address] [place], [address], 04/13/2021 08:05:59 04/12/2004/13/2021 CBC (INCL UDES DIFF/ PLT) MCH 30.6 pg 27.0-3 3.0 normal Not Available [facility] [address] [place], [address], 04/13/2021 08:05:59 04/12/2004/13/2021 CBC (INCL UDES DIFF/ PLT) MCHC 33.7 g/dL 32.0-3 6.0 normal Not Available [facility] [address] [place], [address], 04/13/2021 08:05:59 04/12/2004/13/2021 CBC (INCL UDES DIFF/ PLT) RDW 12.9 % 11.0-1 5.0 normal Not Available [facility] [address] [place], [address], 04/13/2021 08:05:59 04/12/2004/13/2021 CBC (INCL UDES DIFF/ PLT) platelet count 248 thous and/u L 140-40 0 normal Not Available [facility] [address] [place], [address], 04/13/2021 08:05:59 04/12/2004/13/2021 CBC (INCL UDES DIFF/ PLT) MPV 12.3 fL 7.5-12 .5 normal Not Available [facility] [address], [place], [address], 04/13/2021 08:05:59 04/12/2004/13/2021 CBC (INCL UDES DIFF/ PLT) absolute neutrophils 3151 cells /uL 1500-7 800 normal Not Available [facility] [address], [place], [address], 04/13/2021 08:05:59 04/12/2004/13/2021 CBC (INCL UDES DIFF/ PLT) absolute lymphocytes 988 cells /uL 850-39 00 normal Not Available [facility] [address] [place], [address], 04/13/2021 08:05:59 04/12/2004/13/2021 CBC (INCL UDES DIFF/ PLT) absolute monocytes 770 cells /uL 200-95 0 normal Not Available [facility] [address], [place], [address], 04/13/2021 08:05:59 04/12/2004/13/2021 CBC (INCL UDES DIFF/ PLT) absolute eosinophils 270 cells /uL 15-500 normal Not Available [facility] [address], [place], [address], 04/13/2021 08:05:59 04/12/20 21 04/13/2021 CBC (INCL UDES DIFF/ PLT) absolute basophils 21 cells /uL 0-200 normal Not Available [facility] [address] [facility], [place], [address], 04/13/2021 08:05:59 04/12/20 21 04/13/2021 CBC (INCL UDES DIFF/ PLT) neutrophils 60.6 % normal Not Available [facility] [address] [facility], [place], [address], 04/13/2021 08:05:59 04/12/20 21 04/13/2021 CBC (INCL UDES DIFF/ PLT) lymphocytes 19.0 % normal Not Available [facility] [address] [facility], [place], [address], 04/13/2021 08:05:59 04/12/20 21 04/13/2021 CBC (INCL UDES DIFF/ PLT) monocytes 14.8 % normal Not Available [facility] [address] [facility], [place], [address], 04/13/2021 08:05:59 04/12/20 21 04/13/2021 CBC (INCL UDES DIFF/ PLT) eosinophils 5.2 % normal Not Available [facility] [address] [facility], [place], [address], 04/13/2021 08:05:59 04/12/20 21 04/13/2021 CBC (INCL UDES DIFF/ PLT) basophils 0.4 % normal Not Available [facility] [address] [place] [place], [address], 04/13/2021 08:05:59 04/12/20 21 04/13/2021 PSA, TOTAL PSA, total 0.2 NG/mL < or = 4.0 normal The total PSA value from this assay ralphe m is stand ardiz ed again st the WHO stand holly. The test resul t will be appro ximat gama 20% lower when laan red to the equim olar- stand ardiz ed total PSA (Cruz man Coult er). Alan rison of seria l PSA resul ts shoul d be inter prete d with this fact in mind. This test was perfo rmed using the Sieme ns chemi lumin escen t metho d. Value s obtai patricia from diffe rent assay metho ds canno t be used inter spears eably . PSA level s, regar dless of value , shoul d not be inter prete d as absol iqugmiut evide nce of the prese nce or absen ce of disea se. Not Available [facility] [address] [place], [address], 04/13/2021 08:05:59 04/24/20 22 04/25/2022 PSA, TOTAL PSA, total 0.10 NG/mL < or = 4.00 normal The total PSA value from this assay syste m is stand ardiz ed again st the WHO stand holly. The test resul t will be appro ximat gama 20% lower when alan red to the equim olar- stand ardiz ed total PSA (Cruz man Coult er). Alan rison of seria l PSA resul ts shoul d be inter prete d with this fact in mind. This test was perfo rmed using the Sieme ns chemi lumin escen t metho d. Value s obtai patricia from diffe rent assay metho ds canno t be used inter spears eably . PSA level s, regar dless of value , shoul d not be inter prete d as absol iqugmiut evide nce of the prese nce or absen ce of disea se. Not Available [facility] [address] [place], [address], 04/25/2022 07:26:14 05/15/20 23 05/16/2023 LIPID PANEL , STAND HOLLY cholesterol, total 141 mg/dL <200 normal Not Available [facility] [address] [place], [address], 05/16/2023 08:40:50 10/10/05/16/2023 LIPID PANEL , STAND HOLLY HDL cholesterol 42 mg/dL > or = 40 normal Not Available [facility] [address] [facility], [place], [address], 05/16/2023 08:40:50 05/15/20 23 05/16/2023 LIPID PANEL , STAND HOLLY triglyceride s 137 mg/dL <150 normal Not Available [facility] [address] [facility], [place], [address], 05/16/2023 08:40:50 05/15/20 23 05/16/2023 LIPID PANEL , STAND HOLLY LDL-choleste rol 77 mg/dL _(sarthak c) normal Refer ence range : <100 Yusra able range <100 mg/dL for prima ry preve ntion ; <70 mg/dL for patie nts with CHD or diabe tic patie nts with > or = 2 CHD risk facto rs. LDL-C is now calcu lated using the Amarilis n-Hop kins calcu latmelinda n, which is a valid ated novel metho d provi ding rocco r accur acy than the Fried chetna equat ion in the estim ation of LDL-C . Amarilis jackson SS et al. CHRISTINE. 2013; 310(1 9): 2061- 2068 (http ://ed ucati on.Qu Cody Wugly. com/f aq/FA Q164) Not Available [facility] [address] [facility], [place], [address], 05/16/2023 08:40:50 05/15/20 23 05/16/2023 LIPID PANEL , STAND HOLLY chol/HDLC ratio 3.4 (calc ) <5.0 normal Not Available [facility] [address] [facility], [place], [address], 05/16/2023 08:40:50 05/15/20 23 05/16/2023 LIPID PANEL , STAND HOLLY non HDL cholesterol 99 mg/dL _(sarthak c) <130 normal For patie nts with diabe jairo plus 1 major ASCVD risk facto r, treat ing to a non-H DL-C goal of <100 mg/dL (LDL- C of <70 mg/dL ) is faheem pelaez optio n. Not Available [facility] [address] [place], [address], 05/16/2023 08:40:50 05/15/2005/16/2023 COMPR EHENS TAMMY METAB OLIC PANEL glucose 99 mg/dL 65-99 normal Fasti ng refer ence inter rubio Not Available [facility] [address] [place], [address], 05/16/2023 08:40:51 05/15/2005/16/2023 COMPR EHENS TAMMY METAB OLIC PANEL urea nitrogen (BUN) 15 mg/dL 7-25 normal Not Available [facility] [address] [place], [address], 05/16/2023 08:40:51 05/15/2005/16/2023 COMPR EHENS TAMMY METAB OLIC PANEL creatinine 0.69 mg/dL 0.70-1 .35 low Not Available [facility] [address] [place], [address], 05/16/2023 08:40:51 05/15/2005/16/2023 COMPR EHENS TAMMY METAB OLIC PANEL eGFR 102 mL/mi n/1.7 3m2 > or = 60 normal Not Available [facility] [address] [place], [address], 05/16/2023 08:40:51 05/15/2005/16/2023 COMPR EHENS TAMMY METAB OLIC PANEL BUN/creatini ne ratio 22 (calc ) 6-22 normal Not Available [facility] [address] [place], [address], 05/16/2023 08:40:51 05/15/2005/16/2023 COMPR EHENS TAMMY METAB OLIC PANEL sodium 143 mmol/ L 135-14 6 normal Not Available [facility] [address] [place], [address], 05/16/2023 08:40:51 05/15/2005/16/2023 COMPR EHENS TAMMY METAB OLIC PANEL potassium 4.1 mmol/ L 3.5-5. 3 normal Not Available [facility] [address] [place], [address], 05/16/2023 08:40:51 05/15/2005/16/2023 COMPR EHENS TAMMY METAB OLIC PANEL chloride 107 mmol/ L 98-110 normal Not Available [facility] [address] [place], [address], 05/16/2023 08:40:51 05/15/2005/16/2023 COMPR EHENS TAMMY METAB OLIC PANEL carbon dioxide 28 mmol/ L 20-32 normal Not Available [facility] [address] [place], [address], 05/16/2023 08:40:51 05/15/2005/16/2023 COMPR EHENS TAMMY METAB OLIC PANEL calcium 9.0 mg/dL 8.6-10 .3 normal Not Available [facility] [address] [place], [address], 05/16/2023 08:40:51 05/15/2005/16/2023 COMPR EHENS TAMMY METAB OLIC PANEL protein, total 6.2 g/dL 6.1-8. 1 normal Not Available [facility] [address] [place], [address], 05/16/2023 08:40:51 05/15/2005/16/2023 COMPR EHENS TAMMY METAB OLIC PANEL albumin 4.0 g/dL 3.6-5. 1 normal Not Available [facility] [address] [place], [address], 05/16/2023 08:40:51 05/15/20 23 05/16/2023 COMPR EHENS TAMMY METAB OLIC PANEL globulin 2.2 g/dL_ (calc ) 1.9-3. 7 normal Not Available [facility] [address] [place], [address], 05/16/2023 08:40:51 05/15/2005/16/2023 COMPR EHENS TAMMY METAB OLIC PANEL albumin/glob ulin ratio 1.8 (calc ) 1.0-2. 5 normal Not Available [facility] [address] [place], [address], 05/16/2023 08:40:51 05/15/2005/16/2023 COMPR EHENS TAMMY METAB OLIC PANEL bilirubin, total 0.5 mg/dL 0.2-1. 2 normal Not Available [facility] [address] [place], [address], 05/16/2023 08:40:51 05/15/2005/16/2023 COMPR EHENS TAMMY METAB OLIC PANEL alkaline phosphatase 56 U/L 35-144 normal Not Available [facility] [address] [place], [address], 05/16/2023 08:40:51 05/15/2005/16/2023 COMPR EHENS TAMMY METAB OLIC PANEL AST 20 U/L 10-35 normal Not Available [facility] [address] [place], [address], 05/16/2023 08:40:51 05/15/20 23 05/16/2023 COMPR EHENS TAMMY METAB OLIC PANEL ALT 23 U/L 9-46 normal Not Available [facility] [address] [place], [address], 05/16/2023 08:40:51 05/15/2005/16/2023 TSH TSH 1.84 mIU/L 0.40-4 .50 normal Not Available [facility] [address] [place], [address], 05/16/2023 08:40:51 05/15/2005/16/2023 CBC (INCL UDES DIFF/ PLT) white blood cell count 6.2 thous and/u L 3.8-10 .8 normal Not Available [facility] [address] [place], [address], 05/16/2023 08:40:52 05/15/2005/16/2023 CBC (INCL UDES DIFF/ PLT) red blood cell count 4.95 arturo on/uL 4.20-5 .80 normal Not Available [facility] [address] [place], [address], 05/16/2023 08:40:52 05/15/2005/16/2023 CBC (INCL UDES DIFF/ PLT) hemoglobin 15.8 g/dL 13.2-1 7.1 normal Not Available [facility] [place] [facility] [address] [place], [address], 05/16/2023 08:40:52 05/15/2005/16/2023 CBC (INCL UDES DIFF/ PLT) hematocrit 45.5 % 38.5-5 0.0 normal Not Available [facility] [address] [place], [address], 05/16/2023 08:40:52 05/15/2005/16/2023 CBC (INCL UDES DIFF/ PLT) MCV 91.9 fL 80.0-1 00.0 normal Not Available [facility] [address] [facility] [place], [address], 05/16/2023 08:40:52 05/15/2005/16/2023 CBC (INCL UDES DIFF/ PLT) MCH 31.9 pg 27.0-3 3.0 normal Not Available [facility] [address] [facility] [place], [address], 05/16/2023 08:40:52 05/15/2005/16/2023 CBC (INCL UDES DIFF/ PLT) MCHC 34.7 g/dL 32.0-3 6.0 normal Not Available [facility] [address] [facility] [place], [address], 05/16/2023 08:40:52 05/15/2005/16/2023 CBC (INCL UDES DIFF/ PLT) RDW 12.7 % 11.0-1 5.0 normal Not Available [facility] [place] [facility] [address] [facility] [place], [address], 05/16/2023 08:40:52 05/15/2005/16/2023 CBC (INCL UDES DIFF/ PLT) platelet count 161 thous and/u L 140-40 0 normal Not Available [facility] [place] [facility] [address] [facility] [place], [address], 05/16/2023 08:40:52 05/15/2005/16/2023 CBC (INCL UDES DIFF/ PLT) MPV 12.4 fL 7.5-12 .5 normal Not Available [facility] [place] [facility] [address] [facility] [place], [address], 05/16/2023 08:40:52 05/15/2005/16/2023 CBC (INCL UDES DIFF/ PLT) absolute neutrophils 2970 cells /uL 1500-7 800 normal Not Available [facility] [place] [facility] [address], [place], [address], 05/16/2023 08:40:52 05/15/2005/16/2023 CBC (INCL UDES DIFF/ PLT) absolute lymphocytes 1990 cells /uL 850-39 00 normal Not Available [facility] [place] [facility] [address], [place], [address], 05/16/2023 08:40:52 05/15/2005/16/2023 CBC (INCL UDES DIFF/ PLT) absolute monocytes 707 cells /uL 200-95 0 normal Not Available [facility] [place] [facility] [address], [place], [address], 05/16/2023 08:40:52 05/15/2005/16/2023 CBC (INCL UDES DIFF/ PLT) absolute eosinophils 515 cells /uL 15-500 high Not Available [facility] [place] [facility] [address], [place], [address], 05/16/2023 08:40:52 05/15/2005/16/2023 CBC (INCL UDES DIFF/ PLT) absolute basophils 19 cells /uL 0-200 normal Not Available [facility] [place] [facility] [address], [place], [address], 05/16/2023 08:40:52 05/15/2005/16/2023 CBC (INCL UDES DIFF/ PLT) neutrophils 47.9 % normal Not Available [facility] [place] [facility] [address], [place], [address], 05/16/2023 08:40:52 05/15/2005/16/2023 CBC (INCL UDES DIFF/ PLT) lymphocytes 32.1 % normal Not Available [facility] [place] [facility] [address], [place], [address], 05/16/2023 08:40:52 05/15/2005/16/2023 CBC (INCL UDES DIFF/ PLT) monocytes 11.4 % normal Not Available [facility] [place] [facility] [address] [place], [address], 05/16/2023 08:40:52 05/15/20 23 05/16/2023 CBC (INCL UDES DIFF/ PLT) eosinophils 8.3 % normal Not Available [facility] [place] [facility] [address] [place], [address], 05/16/2023 08:40:52 05/15/20 23 05/16/2023 CBC (INCL UDES DIFF/ PLT) basophils 0.3 % normal Not Available [facility] [place] [facility] [address] [place], [address], 05/16/2023 08:40:52 05/15/2005/16/2023 PSA, TOTAL PSA, total 0.18 NG/mL < or = 4.00 normal The total PSA value from this assay syste m is stand ardiz ed again st the WHO stand holly. The test resul t will be appro ximat gama 20% lower when alan red to the equim olar- stand ardiz ed total PSA (Cruz man Coult er). Alan rison of seria l PSA resul ts shoul d be inter prete d with this fact in mind. This test was perfo rmed using the Sieme ns chemi lumin escen t metho d. Value s obtai patricia from diffe rent assay metho ds canno t be used inter spears eably . PSA level s, regar dless of value , shoul d not be inter prete d as absol iqugmiut evide nce of the prese nce or absen ce of disea se. Not Available [facility] [address] [place], [address], 05/16/2023 08:40:52 06/06/2006/06/2023 nonin vasiv e color ectal cance r DNA + occul t blood scree haile, QL, stool cologuard negati ve normal Not Available [facility] (Cologuard Orders Only) [address], [place], [address], 06/15/2023 06:19:23 05/20/20 24 05/21/2024 LIPID PANEL , STAND HOLLY cholesterol, total 140 mg/dL <200 normal Not Available [facility] [address] [facility], [place], [address], 05/21/2024 11:31:22 05/20/20 24 05/21/2024 LIPID PANEL , STAND HOLLY HDL cholesterol 46 mg/dL > or = 40 normal Not Available [facility] [address] [facility], [place], [address], 05/21/2024 11:31:22 05/20/20 24 05/21/2024 LIPID PANEL , STAND HOLLY triglyceride s 83 mg/dL <150 normal Not Available [facility] [place] [facility] [address] [facility], [place], [address], 05/21/2024 11:31:22 05/20/2005/21/2024 LIPID PANEL , STAND HOLLY LDL-choleste rol 77 mg/dL _(sarthak c) normal Refer ence range : <100 Yusra able range <100 mg/dL for prima ry preve ntion ; <70 mg/dL for patie nts with CHD or diabe tic patie nts with > or = 2 CHD risk facto rs. LDL-C is now calcu lated using the Amarilis n-Hop kins calcu latmelinda n, which is a valid ated novel miryam lam acisaac than the Fried chetna equat ion in the estim ation of LDL-C . Amarilis jackson SS et al. CHRISTINE. 2013; 310(1 9): 2061- 2068 (http ://ed ucati on.Qu estDi fouziaos Kalikis. com/f aq/FA Q164) Not Available [facility] [address] [facility] [place], [address], 05/21/2024 11:31:22 05/20/20 24 05/21/2024 LIPID PANEL , STAND HOLLY chol/HDLC ratio 3.0 (calc ) <5.0 normal Not Available [facility] [place] [facility] [address] [facility], [place], [address], 05/21/2024 11:31:22 05/20/20 24 05/21/2024 LIPID PANEL , STAND HOLLY non HDL cholesterol 94 mg/dL _(sarthak c) <130 normal For patie nts with diabe jairo plus 1 major ASCVD risk facto r, treat ing to a non-H DL-C goal of <100 mg/dL (LDL- C of <70 mg/dL ) is consi dered a thera peuti c optio n. Not Available [facility] [place] [facility] [address] [place], [address], 05/21/2024 11:31:22 05/20/2005/21/2024 COMPR EHENS TAMMY METAB OLIC PANEL glucose 93 mg/dL 65-99 normal Fasti ng refer ence inter rubio Not Available [facility] [place] [facility] [address] [place], [address], 05/21/2024 11:31:23 05/20/20 24 05/21/2024 COMPR EHENS TAMMY METAB OLIC PANEL urea nitrogen (BUN) 14 mg/dL 7-25 normal Not Available [facility] [place] [facility] [address] [place], [address], 05/21/2024 11:31:23 05/20/20 24 05/21/2024 COMPR EHENS TAMMY METAB OLIC PANEL creatinine 0.64 mg/dL 0.70-1 .35 low Not Available [facility] [address] [place], [address], 05/21/2024 11:31:23 05/20/2029 0505/21/2024 COMPR EHENS TAMMY METAB OLIC PANEL eGFR 104 mL/mi n/1.7 3m2 > or = 60 normal Not Available [facility] [address] [place], [address], 05/21/2024 11:31:23 05/20/20 24 05/21/2024 COMPR EHENS TAMMY METAB OLIC PANEL BUN/creatini ne ratio 22 (calc ) 6-22 normal Not Available [facility] [address] [place], [address], 05/21/2024 11:31:23 05/20/20 24 05/21/2024 COMPR EHENS TAMMY METAB OLIC PANEL sodium 140 mmol/ L 135-14 6 normal Not Available [facility] [address] [place], [address], 05/21/2024 11:31:23 05/20/20 24 05/21/2024 COMPR EHENS TAMMY METAB OLIC PANEL potassium 4.0 mmol/ L 3.5-5. 3 normal Not Available [facility] [address] [place], [address], 05/21/2024 11:31:23 05/20/20 24 05/21/2024 COMPR EHENS TAMMY METAB OLIC PANEL chloride 106 mmol/ L 98-110 normal Not Available [facility] [address] [place], [address], 05/21/2024 11:31:23 05/20/20 24 05/21/2024 COMPR EHENS TAMMY METAB OLIC PANEL carbon dioxide 26 mmol/ L 20-32 normal Not Available [facility] [address] [place], [address], 05/21/2024 11:31:23 05/20/20 24 05/21/2024 COMPR EHENS TAMMY METAB OLIC PANEL calcium 9.0 mg/dL 8.6-10 .3 normal Not Available [facility] [address] [facility] [place], [address], 05/21/2024 11:31:23 05/20/20 24 05/21/2024 COMPR EHENS TAMMY METAB OLIC PANEL protein, total 6.6 g/dL 6.1-8. 1 normal Not Available [facility] [address] [place], [address], 05/21/2024 11:31:23 05/20/20 24 05/21/2024 COMPR EHENS TAMMY METAB OLIC PANEL albumin 4.2 g/dL 3.6-5. 1 normal Not Available [facility] [address] [place], [address], 05/21/2024 11:31:23 05/20/20 24 05/21/2024 COMPR EHENS TAMMY METAB OLIC PANEL globulin 2.4 g/dL_ (calc ) 1.9-3. 7 normal Not Available [facility] [address] [place], [address], 05/21/2024 11:31:23 05/20/20 24 05/21/2024 COMPR EHENS TAMMY METAB OLIC PANEL albumin/glob ulin ratio 1.8 (calc ) 1.0-2. 5 normal Not Available [facility] [address] [facility] [place], [address], 05/21/2024 11:31:23 05/20/20 24 05/21/2024 COMPR EHENS TAMMY METAB OLIC PANEL bilirubin, total 0.7 mg/dL 0.2-1. 2 normal Not Available [facility] [address] [place], [address], 05/21/2024 11:31:23 05/20/20 24 05/21/2024 COMPR EHENS TAMMY METAB OLIC PANEL alkaline phosphatase 60 U/L 35-144 normal Not Available [facility] [facility] [address] [facility] [place], [address], 05/21/2024 11:31:23 05/20/20 24 05/21/2024 COMPR EHENS TAMMY METAB OLIC PANEL AST 21 U/L 10-35 normal Not Available [facility] [address] [facility] [place], [address], 05/21/2024 11:31:23 05/20/20 24 05/21/2024 COMPR EHENS TAMMY METAB OLIC PANEL ALT 19 U/L 9-46 normal Not Available [facility] [employer] [facility] [address] [facility] [place], [address], 05/21/2024 11:31:23 05/20/20 24 05/21/2024 TSH TSH 1.38 mIU/L 0.40-4 .50 normal Not Available [facility] [address] [facility] [place], [address], 05/21/2024 11:31:23 05/20/2005/21/2024 CBC (INCL UDES DIFF/ PLT) white blood cell count 6.4 thous and/u L 3.8-10 .8 normal Not Available [facility] [facility] [address] [facility] [place], [address], 05/21/2024 11:31:24 05/20/2005/21/2024 CBC (INCL UDES DIFF/ PLT) red blood cell count 5.00 arturo on/uL 4.20-5 .80 normal Not Available [facility] [address] [facility] [place], [address], 05/21/2024 11:31:24 05/20/20 24 05/21/2024 CBC (INCL UDES DIFF/ PLT) hemoglobin 15.6 g/dL 13.2-1 7.1 normal Not Available [facility] [facility] [address] [place], [address], 05/21/2024 11:31:24 05/20/2005/21/2024 CBC (INCL UDES DIFF/ PLT) hematocrit 46.6 % 38.5-5 0.0 normal Not Available [facility] [address] [place], [address], 05/21/2024 11:31:24 05/20/2005/21/2024 CBC (INCL UDES DIFF/ PLT) MCV 93.2 fL 80.0-1 00.0 normal Not Available [facility] [address] [place], [address], 05/21/2024 11:31:24 05/20/2005/21/2024 CBC (INCL UDES DIFF/ PLT) MCH 31.2 pg 27.0-3 3.0 normal Not Available [facility] [address] [place], [address], 05/21/2024 11:31:24 05/20/2005/21/2024 CBC (INCL UDES DIFF/ PLT) MCHC 33.5 g/dL 32.0-3 6.0 normal For adult s, a sligh t decre ase in the calcu lated MCHC value (in the range of 30 to 32 g/dL) is most likel y not clini ermias signi fican t; isai er, it shoul d be inter prete d with cauti on in corre latio n with other red cell marjorie eters and the patie nt's clini sarthak condi tion. Not Available [facility] [place] [facility] [address] [place], [address], 05/21/2024 11:31:24 05/20/20 24 05/21/2024 CBC (INCL UDES DIFF/ PLT) RDW 12.8 % 11.0-1 5.0 normal Not Available [facility] [place] [facility] [address], [place], [address], 05/21/2024 11:31:24 05/20/2005/21/2024 CBC (INCL UDES DIFF/ PLT) platelet count 177 thous and/u L 140-40 0 normal Not Available [facility] [address], [place], [address], 05/21/2024 11:31:24 05/20/2005/21/2024 CBC (INCL UDES DIFF/ PLT) MPV 12.0 fL 7.5-12 .5 normal Not Available [facility] [place] [facility] [address], [place], [address], 05/21/2024 11:31:24 05/20/2005/21/2024 CBC (INCL UDES DIFF/ PLT) absolute neutrophils 3744 cells /uL 1500-7 800 normal Not Available [facility] [place] [facility] [address], [place], [address], 05/21/2024 11:31:24 05/20/2005/21/2024 CBC (INCL UDES DIFF/ PLT) absolute lymphocytes 1478 cells /uL 850-39 00 normal Not Available [facility] [address], [place], [address], 05/21/2024 11:31:24 05/20/2005/21/2024 CBC (INCL UDES DIFF/ PLT) absolute monocytes 608 cells /uL 200-95 0 normal Not Available [facility] [place] [facility] [address], [place], [address], 05/21/2024 11:31:24 05/20/2005/21/2024 CBC (INCL UDES DIFF/ PLT) absolute eosinophils 550 cells /uL 15-500 high Not Available [facility] [address], [place], [address], 05/21/2024 11:31:24 05/20/20 24 05/21/2024 CBC (INCL UDES DIFF/ PLT) absolute basophils 19 cells /uL 0-200 normal Not Available [facility] [place] [facility] [address], [place], [address], 05/21/2024 11:31:24 05/20/20 24 05/21/2024 CBC (INCL UDES DIFF/ PLT) neutrophils 58.5 % normal Not Available [facility] [place] [facility] [address], [place], [address], 05/21/2024 11:31:24 05/20/2005/21/2024 CBC (INCL UDES DIFF/ PLT) lymphocytes 23.1 % normal Not Available [facility] [place] [facility] [address] [facility] [address] [facility], [place], [address], 05/21/2024 11:31:24 05/20/20 24 05/21/2024 CBC (INCL UDES DIFF/ PLT) monocytes 9.5 % normal Not Available [facility] [place] [facility] [address], [place], [address], 05/21/2024 11:31:24 05/20/20 24 05/21/2024 CBC (INCL UDES DIFF/ PLT) eosinophils 8.6 % normal Not Available [facility] [place] [facility] [address] [facility], [place], [address], 05/21/2024 11:31:24 05/20/20 24 05/21/2024 CBC (INCL UDES DIFF/ PLT) basophils 0.3 % normal Not Available [facility] [place] [facility] [address] [facility], [place], [address], 05/21/2024 11:31:24 05/20/20 24 05/21/2024 PSA, TOTAL PSA, total 0.18 NG/mL < or = 4.00 normal The total PSA value from this assay syste m is stand ardiz ed again st the WHO stand holly. The test resul t will be appro ximat gama 20% lower when alan red to the equim olar- stand ardiz ed total PSA (Cruz man Coult er). Alan rison of seria l PSA resul ts shoul d be inter prete d with this fact in mind. This test was perfo rmed using the Sieme ns chemi lumin escen t metho d. Value s obtai patricia from diffe rent assay metho ds canno t be used inter spears eably . PSA level s, regar dless of value , shoul d not be inter prete d as absol iqugmiut evide nce of the prese nce or absen ce of disea se. Not Available [facility] [place] [facility] [address] [facility], [place], [address], 05/21/2024 11:31:24 06/06/20 22 06/06/2022 cardi ac stres s test No observ ation record ed. [address] [facility] [address] [facility], [place], [address], 06/07/2022 19:49:06 06/06/20 23 06/06/2023 , shayna be for abdom inal aorti c aneur ysm No observ ation record ed. [facility] [address], [place], [address], 06/11/2023 20:25:09 06/03/20 24 06/03/2024 LDCT, chest , for lung cance r scree [facility] [address] [place] [address] Phone: Fax: Name: SUE CASSIDY Exam Date: 2023 : 957 Age 69 years Gender : M Access ion: [id number] Physic rosalie: JACKIE FINLEY ty: [facility] Facili ty HSV: Outpat ient Exam: CT CHEST LOW DOSE .CT LOW DOSE LUNG CANCER SCREEN ING 2023 7:13 AM CDT Indica tion: Baseli nescre ening. Compar francis: March 08, 2021 Techni que: A low dose CT of the chest withou t intrav enous contra st was perfor med and reform atted in the axial plane at 1 - 1.25 mm sectio n thickn ess, as per the lung cancer screen ing protoc ol. Images were reform atted into axial 5 mm images at 5 mm interv al and axial 8 mm MIP images at 1 mm interv al. Additi onal mortensen l and sagitt al recons tructi ons were includ ed. Radiat ion dose loweri ng techni que, automa jens exposu re contro l, utiliz ed. Findin gs: Centri lobula r emphys ematou s change s are noted bilate rally. No lobar consol idatio n, pleura l effusi ons or pneumo thorax . The centra l trache obronc hial tree is patent . No suspic ious lung nodule s. The heart size is normal . No perica rdial effusi ons. Athero sclero tic vascul ar calcif icatio n of the thorac ic aorta and the mortensen ry arteri es are noted. Few scatte red medias tinal lymph nodes are noted, not signif icant by size criter ia. Visual ized thyroi d gland is unrema rkable . The visual ized upper abdomi nal solid organs are unrema rkable within the limita tions of unenha nced study. Visual ized osseou s struct ures are unrema rkable . IMPRES CHAVEZ: Emphys ematou s change s. Lung-R ADS Assess ment Catego ry: 1 - Negati ve. No nodule s or defini tely benign nodule s. Contin ue annual screen ing with low dose CT in 12 months . Full Lung-R ADS 2021 summar y docume nt publis hed Novemb er 2021 can be found at https: //[email or web address]. [email or web address] R/File s/RADS /Lung- RADS/L cricket-RA 2.pdf . . . S/D/G FINDIN GS: LUNGS AND AIRWAY S: No pneumo thorax , pleura l effusi on, or perica rdial effusi on is seen. No alveol ar infilt rate or focal consol idatio n is seen. No suspic ious pulmon shawnee parenc hymal nodule s or masses are seen. HEART AND GREAT VESSEL S: The heart is normal size. Legall y authen ticate d by SHILPA ROONEY 2023-08 08:13: 40 MEDIAS TINUM: No hilar or medias tinal lympha denopa thy is seen. IMPRES CHAVEZ: FINDIN GS: IMPRES CHAVEZ: Electr onical ly signed by: Alena Massey MD 2023 09:54 AM EDT RP Workst ation: [id number] Dictat ed By: ALENA MASSEY Transc ribed By: Transc ribed On: 2023 8:13 AM Electr onical ly signed by: ALENA MASSEY 2023 Thank you for referr SUE Jewell to [facility]. Legall y authen ticate d by SHILPA ROONEY 2023-08 08:13: 40 CC'ed Logic: Orderi ng Provid er: NASH Melendez CC Provid er: NASH Melendez Attend ing Provid er: NASH Melendez Referr ing Provid er: NASH Melendez Admitt ing Provid er: NASH cardona [facility] (Radiology) [address] , [place], [address], 06/30/2024 08:48:10 09/21/19 25 09/21/2024 XR, chest , 2 view No observ ation record ed. brendan [facility] [address], [place], [address], 09/21/2024 13:50:25 09/21/19 25 09/21/2024 rhyth m strip , EKG* No observ ation record ed. [address], [place], [address], 09/21/2024 21:20:16 09/22/19 25 09/22/2024 , echo ardio gram No observ ation record ed. [address], [place], [address], 10/06/2024 05:52:02 09/23/19 25 09/22/2024 elect jose guadalupe degroot am inter preta tion* No observ ation record ed. [address], [place], [address], 10/06/2024 05:52:33 Result Notes None recorded. Problems Name Problem SNOMED Code Status Onset Date Resolution Date Notes Provider Name and Address Organization Details Recorded Time Herpes zoster 3569487 Active Not Available [facility] 03:01:13 Hyperlipide julisa 82702029 Active Dilma Horta MD [address], [address] , [facility] 5 16:11:50 Coronary atheroscler osis 816095929 Active 2006 CO Dilma Horta MD 2016 [facility] [address], [place], [address] , [facility] 5 16:11:50 Pain of hip region 82917091 Active Not Available [facility] 3 03:01:13 Allergic rhinitis 75132252 Active Dilma Horta MD 2016 [facility] [address], [address] , [facility] 5 16:11:50 Acute myocardial infarction 94342673 Active 2003 this occured while digging a dog's grave Not Available [facility] 3 03:01:13 Chronic low back pain 861506779 Active Dilma Horta MD [address] [place] [address] , [facility] 6 18:04:54 Herpes simplex 33575978 Active Dilma Horta MD [address] [place] [address] , [facility] 5 16:11:50 Swelling of inguinal region 797604407 Active Dilma Horta MD [address] [place] [address] , [facility] 5 09:13:26 Right inguinal hernia 267289175 Active Dilma Horta MD [address] [place] [address] , [facility] 5 23:44:32 History of placement of stent for coronary artery disease 079996915 Active 2018 Dilma Horta MD [address] [address] , [facility] 9 08:54:21 Raynaud's phenomenon 290881134 Active 2018 Dilma Horta MD [address] [address] , [facility] 9 08:54:23 Ex-cigarett e smoker 956038860 Active 2018 Dilma Horta MD [address] [address] , [facility] 9 08:54:25 Herpes simplex type 2 infection 205143609 Active 2018 Dilma Horta MD [address] [address], [place], [address] , [facility] 9 08:54:31 Chronic back pain 652641249 Active 2018 Dilma Horta MD [address], [address] [place] [address] , [facility] 9 08:54:33 Essential hypertensio n 70010920 Active 2018 Dilma Horta MD [address], [address] [place] [address] , [facility] 9 08:54:34 Anticoagula nt therapy Active 2018 Dilma Horta MD [address], [address] [place] [address] , [facility] 9 08:54:36 History of radiofreque ncy ablation operation for arrhythmia 423647170 Active 2022 Dilma Horta MD [address], [address] [place] [address] , [facility] 3 22:34:49 Chronic pain syndrome 855600231 Active 2022 Dilma Horta MD [address], [address] [place] [address] , [facility] 3 22:39:36 Paroxysmal atrial fibrillatio n 302273041 Active 2022 Dilma Horta MD [address], [address] [place] [address] , [facility] 3 22:39:37 Problem Notes None recorded. Procedures Surgical History Date Name Laterality Status Provider Name and Address Organization Details Recorded Time 09/10/19 19 Destructions completed Dilma Horta MD [address], [address] [place] [address], [facility] 09/12/2018 00:45:44 03/07/20 16 Hernia repair w/mesh completed [facility] 04/13/2016 09:05:45 08/06/19 15 Cardiac Surgery completed Dilma Horta MD [address] [address], [place], [address], [facility] 05/14/2015 12:34:47 08/06/19 11 Cardiac Surgery completed [facility] 03/03/2013 10:14:44 08/06/19 10 Back Surgery completed Dilma Horta MD [address] [address], [place], [address], [facility] 03/03/2013 11:19:30 11/14/19 09 Colonoscopy completed [facility] 10/16/2014 11:43:42 08/06/19 07 Cardiac Surgery completed Dilma Horta MD [address] [address], [place], [address], [facility] 03/03/2013 11:19:30 08/06/19 04 Cardiac Surgery completed Dilma Horta MD [address] [address], [place], [address], [facility] 03/03/2013 11:19:30 Imaging Results Imaging Date Name Status LastModified by Organization Details LastModified Time 06/06/2022 cardiac stress test completed [email or web address] [place] [address] Cardiology [address] , [place], [address], 06/07/2022 19:49:06 06/06/2023 US, screening for abdominal aortic aneurysm completed [email or web address] [place] [address], [place], [address], 06/11/2023 20:25:09 06/03/2024 LDCT, chest, for lung cancer screening completed [address] (Radiology) [address] , [place], [address], 06/30/2024 08:48:10 09/21/2024 XR, chest, 2 view completed [address], [place], [address], 09/21/2024 13:50:25 09/21/2024 rhythm strip, EKG* completed [address], [place], [address], 09/21/2024 21:20:16 09/22/2024 US, echocardiogram completed [address], [place], [address], 10/06/2024 05:52:02 09/22/2024 electrocardiogram interpretation* completed [address], [place], [address], 10/06/2024 05:52:33 Procedure Notes None recorded. Medical Equipment None Reported. Allergies No known drug allergies Medications Name Sig Start Date Stop Date Status Note LastModified by Organization Details LastModified Time eq allergy relf d 10-240mg tab TAKE 1 TABLET BY MOUTH ONCE DAILY NEEDED 05/27 completed Not Available Not Available Not Available betametha sone valerate 0.1 % topical ointment APPLY TO AFFECTED SKIN TWICE A DAY 2023 active Not Available Not Available Not Avai lable atorvasta tin 80 mg tablet Take 1 tablet every day by oral route. active Not Available Not Available No t Available carvedilo l 6.25 mg tablet 1 po bid 09/25 completed Not Available Not Available Not Available cetirizin e 10 mg tablet one p.o. daily 2010 active Not Available Not Available Not Avai lable valacyclo vir 1 gram tablet 1 po daily 08/16 completed dose change Not Available Not Available Not Available sotalol 80 mg tablet TAKE 1 TABLET BY MOUTH TWICE DAILY 05/24 completed Not Available Not Available Not Available ondansetr on HCl 4 mg tablet 05/30 completed Not Available Not Available Not Available acetamino phen 300 mg-codein e 15 mg tablet Take 1 tablet every 6 hours by oral route. active his is the 300mg/30 mg dose Not Available Not Available Not Available acetamino phen 300 mg-codein e 30 mg tablet TAKE 1 TABLET BY MOUTH EVERY 6 HOURS NEEDED FOR CHRONIC PAIN active Not Available Not Available No t Available clopidogr el 75 mg tablet TAKE ONE TABLET BY MOUTH EVERY DAY active Not Available Not Available No t Available valacyclo vir 500 mg tablet TAKE 1 TABLET DAILY 2023 active Not Available Not Available Not Avai lable aspirin 81 mg tablet,de layed release Take 1 tablet every day by oral route. active Not Available Not Available No t Available carvedilo l 3.125 mg tablet TAKE ONE TABLET BY MOUTH TWICE DAILY --TAKE WITH FOOD-- OR MEAL 09/25 completed Not Available Not Available Not Available cyclopent olate 1 % eye drops INSTILL 1 DROP DIRECTED INTO AFFECTED EYE UPON AWAKENIN G. INSTILL 1 DROP LEAVING HOME AND 1 DROP ON ARRIVAL 05/24 completed Not Available Not Available Not Available oxycodone -acetamin ophen 5 mg-325 mg tablet 05/31 completed Not Available Not Available Not Available famotidin e 20 mg tablet 1 po bid prn 2024 active Not Available Not Available Not Avai lable betametha sone valerate 0.1 % topical cream APPLY A THIN LAYER TO THE AFFECTED AREA(S) BY TOPICAL ROUTE ONCE DAILY 07/17 completed duplicat e Not Available Not Available Not Available hydrocodo ne 7.5 mg-acetam inophen 325 mg tablet 05/31 completed Not Available Not Available Not Available cephalexi n 500 mg capsule Take 2 capsules twice a day by oral route for 5 days. 09/18 completed Not Available Not Available Not Available pantopraz ole 40 mg tablet,de layed release TAKE 1 TABLET BY MOUTH DAILY 05/24 completed Not Available Not Available Not Available erythromy epi 5 mg/gram (0.5 %) eye ointment 05/24 completed Not Available Not Available Not Available ropinirol e 0.5 mg tablet TAKE 1 TO 2 TABLETS EVERY EVENING 2024 active Not Available Not Available Not Avai lable prednison e 50 mg tablet TAKE 1 TABLET BY MOUTH ONCE DAILY IN AM WITH FOOD FOR 5 DAYS active Not Available Not Available No t Available nitroglyc samuel 0.4 mg sublingua l tablet DISSOLVE ONE TABLET UNDER THE TONGUE EVERY 5 MINUTES NEEDED FOR CHEST PAIN. DO NOT EXCEED A TOTAL OF 3 DOSES IN 15 MINUTES active Not Available Not Available No t Available monteluka st 10 mg tablet TAKE 1 TABLET BY MOUTH EVERY NIGHT active Not Available Not Available No t Available lisinopri l 5 mg tablet Take 1 tablet every day by oral route for 90 days. active Not Available Not Available No t Available dexametha sone sodium phosphate 4 mg/mL injection solution Inject 1 mL by intramus cular route. 2024 active Not Available Not Available Not Avai lable azelastin e 137 mcg (0.1 %) nasal spray USE 1 TO 2 SPRAYS IN EACH NOSTRIL TWICE DAILY DIRECTED active Not Available Not Available No t Available epinephri ne 0.3 mg/0.3 mL injection , auto-inje ctor INJECT 1 PEN IN THE MUSCLE ONE TIME DIRECTED active Not Available Not Available No t Available methylpre dnisolone 4 mg tablets in a dose pack FOLLOW PACKAGE DIRECTIO NS active Not Available Not Available No t Available albuterol sulfate HFA 90 mcg/actua tion aerosol inhaler USE 2 INHALATI ONS EVERY 4 HOURS NEEDED active Not Available Not Available No t Available ondansetr on 4 mg disintegr ating tablet 12/04 completed Not Available Not Available Not Available fluticaso ne propionat e 50 mcg/actua tion nasal spray,bladimir pension SHAKE LIQUID AND USE 1 TO 2 SPRAYS IN EACH NOSTRIL DAILY DIRECTED active Not Available Not Available No t Available loratadin e 10 mg tablet 1 po daily prn 12/05 completed Not Available Not Available Not Available amoxicill in 875 mg-potass ium clavulana te 125 mg tablet Take 1 tablet every 12 hours by oral route. 08/19 completed Not Available Not Available Not Available Loratadin e-D 10 mg-240 mg tablet,ex tended release 24 hr TAKE 1 TABLET BY MOUTH EVERY DAY active Not Available Not Available No t Available Vitamin C 1 po daily active Not Available Not Available No t Available Fish Oil 1 po daily 05/24 completed Not Available Not Available Not Available Vitamin D3 1000 units daily active Not Available Not Available No t Available Havrix (PF) 1,440 MONTSERRAT unit/mL intramusc ular syringe 04/25 completed Not Available Not Available Not Available Vaqta (PF) 50 unit/mL intramusc ular syringe PHARMACI ST ADMINIST ERED IMMUNIZA TION ADMINIST ERED AT TIME OF DISPENSI NG 01/15 completed Not Available Not Available Not Available levocetir izine 5 mg tablet TAKE 1 TABLET BY MOUTH EVERY DAY active HIS ALLERGIS T PRESCRIB ES THIS FOR HIM Not Available Not Available Not Available Effient 10 mg tablet 07/24 completed changed to plavix Not Available Not Available Not Available Eliquis 5 mg tablet 1 po bid active Not Available Not Available N ot Available Fluarix Quad (PF) 60 mcg (15 mcg x 4)/0.5 mL IM syringe 04/25 completed Not Available Not Available Not Available Vitals Date Recorded Body height Body mass index (BMI) Body weight Heart rate Oxygen saturation Oxygen saturation in Arterial blood by Pulse oximetry Body temperature Systolic blood pressure Diastolic blood pressure Provider Name and Address Organization Details Last Updated DateTime 1 180.34 cm 28.2 kg/m2 83522.7 6 g 97 /min 96 % 96 % 98.1 [degF] 108 mm[Hg] 72 mm[Hg] [email or web address] 1 14:19:47 Date Recorded Body height Body mass index (BMI) Body weight Heart rate Oxygen saturation Oxygen saturation in Arterial blood by Pulse oximetry Body temperature Systolic blood pressure Diastolic blood pressure Systolic blood pressure Diastolic blood pressure Provider Name and Address Organization Details Last Updated DateTime 2 180.34 cm 30.7 kg/m2 76352.3 2 g 59 /min 98 % 98 % 97 [degF] 151 mm[Hg] 96 mm[Hg] 140 mm[Hg] 90 mm[Hg] [facility] 2 10:16:59 Date Recorded Body height Body mass index (BMI) Body weight Heart rate Oxygen saturation Oxygen saturation in Arterial blood by Pulse oximetry Body temperature Systolic blood pressure Diastolic blood pressure Provider Name and Address Organization Details Last Updated DateTime 3 180.34 cm 30 kg/m2 99808.0 6 g 86 /min 98 % 98 % 97.3 [degF] 120 mm[Hg] 85 mm[Hg] [facility] 3 13:41:32 Date Recorded Body height Body mass index (BMI) Body weight Heart rate Oxygen saturation Oxygen saturation in Arterial blood by Pulse oximetry Body temperature Systolic blood pressure Diastolic blood pressure Provider Name and Address Organization Details Last Updated DateTime 4 180.34 cm 28.1 kg/m2 66216.8 7 g 77 /min 98 % 98 % 97.5 [degF] 130 mm[Hg] 84 mm[Hg] [facility] 4 09:06:25 Date Recorded Body height Body weight Heart rate Oxygen saturation Oxygen saturation in Arterial blood by Pulse oximetry Body temperature Systolic blood pressure Diastolic blood pressure Provider Name and Address Organization Details Last Updated DateTime 5 180.34 cm 45374.0 7 g 75 /min 97 % 97 % 96.1 [degF] 124 mm[Hg] 75 mm[Hg] [facility] 5 15:08:39 Social History Question Answer Notes LastModified by Organizat ion Details LastModified Time Tobacco Smoking Status Former Smoker Not Available [facility] 06/01/2020 03:11:19 Do You Have An Advance Directive? Yes [id number] Information not available 06/01/2020 Animal Exposure? Yes Informat ion not available 03/03/2013 Auto Related Injury? No Information not available 03/03/2013 Is Blood Transfusion Acceptable In An Emergency? Yes [id number] Information not available 06/01/2020 What Is Your Level Of Caffeine Consumption? Moderate [id number] Information not available 06/01/2020 How Much Tobacco Do You Chew? None [id number] Information not available 06/01/2020 What Is Your Code Status? Full Code But Has A Living Will And Has Medical POA. Information not available 05/24/2023 Diabetes No Information no t available 03/03/2013 What Type Of Diet Are You Following? REGULAR [id number] Information not available 06/01/2020 Education 12 Information no t available 03/03/2013 What Is The Highest Grade Or Level Of School You Have Completed Or The Highest Degree You Have Received? [id number] Information not available 04/21/2021 Who Is Your Employer? [employer] [id number] Information not available 06/01/2020 Family History Of Heart Disease? No Information not available 03/03/2013 Which Of Your Hands Is Dominant? Right [id number] Information not available 06/01/2020 High Blood Pressure No Information not available 03/03/2013 High Cholesterol Yes Informat ion not available 03/03/2013 Live Alone Or With Others? With Others Information not available 03/03/2013 Marital Status Informatio n not available 03/03/2013 What Was The Date Of Your Most Recent Tobacco Screening? 05/27/2024 Information not available 05/27/2024 How Many Children Do You Have? 3 [id number] Information not available 06/01/2020 What Is Your Relationship Status? Information not available 04/21/2021 Do You Use Your Seat Belt Or Car Seat Routinely? Yes [id number] Information not available 06/01/2020 Seat Belts Used Routinely Yes Information not available 03/03/2013 Smoke Alarm In Home Yes Information not available 03/03/2013 How Much Tobacco Do You Smoke? No Information not available 05/27/2024 General Stress Level Low Information not available 03/03/2013 Do You Use Sunscreen Routinely? No [id number] Information not available 06/01/2020 How Many Years Have You Smoked Tobacco? 23 [id number] Information not available 06/01/2020 Work Related Injury? No Information not available 03/03/2013 Sex: Unknown Functional Status Question Answer Note LastModified by Organizat ion Details LastModified Time What is your level of alcohol consumption? Occasional was taking 3-4 shots but less after retiring and has stopped all together now. [email or web address] Information not available 05/24/2023 Are you currently employed? No Information not available 05/24/2023 Are you able to care for yourself? 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 Occasional [id number] Information not available 06/01/2020 Mental Status None recorded. Family History Relationship Description Onset Age of this Age Resolved Age Notes LastModified by Organization Details LastModified Time Brother Malignant tumor of pancreas half brothe r Not available 05/27/2024 10:04:55 Brother Malignant neoplasm of lung half brothe r Not available 05/27/2024 10:05:17 Brother Carcinoma of esophagus half brothe r Not available 05/27/2024 10:06:04 Mother Dementia was not raised by her [email or web address] Not available 05/27/2024 10:06:43 Notes:ADOPTED Medical History Condition Response Coronary Artery Disease N Gout N Kidney Stones N Blood Diseases N Hyperthyroidism N Depression N COPD N Hypothyroidism N Developmental or Behavioral Disorders N Eczema, Hives or other skin conditions N Anxiety Disorder N Muscle, Joint, or Bone Problems N Vision or Eye Problems N Arthritis N Serious Illness or Injuries N Congenital Anomalies N Cancer N Stroke N Bladder or Kidney Problems N Hospital Admission other than N High Cholesterol Y Liver Disease N Fibromyalgia N Kidney Disease N Heart Problems Y Ear or Hearing Problems N ADD or ADHD N Thyroid Problems N Skin Problems N Anemia N Constipation N Diabetes N Bedwetting N Seizures/Epilepsy N Tuberculosis N Diverticulitis N Asthma N Allergies Y GERD/Reflux N Heart Disease N Pulmonary Embolism N Hypertension N Chicken Pox N Osteoporosis N Immunizations Vaccine Type Date Status Note Provider Nam e and Address Organization Details Recorded Time Influenza, recombinant, quadrivalent, PF 9 completed Not Available [facility] 08/23/2019 02:12:11 Influenza, recombinant, quadrivalent, PF 1 completed Not Available [facility] 04/21/2021 14:21:31 Influenza, split virus, quadrivalent, preservative 4 completed Dilma Horta MD [address], [address], [facility] 04/24/2022 21:52:12 zoster live 6 completed Dilma Horta MD [address], [address], [facility] 04/24/2022 21:52:12 Tdap 6 completed Dilma Horta MD [address], [address], [facility] 04/24/2022 21:52:12 Past Encounters Encounter ID Performer Location Encounter Start Date Encounter Closed Date Diagnosis/Indication Diagnosis SNOMED-CT Code Diagnosis ICD10 Code Diagnosis Note [id number] Dilma Horta MD [facility] [address] [place] [address] 03/03/2013 10:01:57 03/03/2013 16:51:38 [id number] Dilma Horta MD [facility] [address] [place] [address] 11/10/2014 14:21:18 11/10/2014 16:15:20 Adult health examination 682642429 Coronary atherosclerosis 329975797 Hyperlipidemia 96252068 Allergic rhinitis 55050665 Chronic low back pain 862741661 Herpes simplex 01844225 Screening for cancer 92681620 [id number] Dilma Horta MD [facility] [address] [address] 04/28/2015 08:53:17 04/29/2015 07:53:48 Swelling of inguinal region 362774271 [id number] Dilma Horta MD [facility] [address] [address] 05/14/2015 10:58:52 05/18/2015 16:39:15 Right inguinal hernia 725508381 K40.90 [id number] Dilma Horta MD [facility] [address] [address] 04/13/2016 08:53:37 04/13/2016 17:16:29 Adult health examination 285214313 Z00.01 Hyperlipidemia 69728607 E78.5 Anticoagulant therapy 18 4632083 Z79.01 Essential hypertension 98337428 I10 Chronic back pain 721638 002 G89.29 Herpes sim plex type 2 infection 540454874 B00.9 Viral screening 60905216 4 Z11.59 [id number] Dilma Horta MD [address] [address] 08/09/2017 10:16:58 08/13/2017 17:19:28 Acute sialoadenitis 012045311 K11.21 [id number] Dilma Horta MD [address] [address] 09/10/2018 14:49:22 09/13/2018 16:37:31 Foot callus 518947259 L84 Infection of skin 992316 000 L08.9 [id number] Dilma Horta MD [address] [address] 01/13/2019 15:58:50 01/14/2019 08:25:18 Urticaria caused by cold 83568347 L50.2 We recommend he try hand and boot warmers while working in the freezer. Psoriasis 2900455 L40.9 [id number] Dilma Horta MD [facility] [address] [address] 07/22/2019 10:02:27 07/23/2019 09:38:43 Active or passive immunization 663222293 Z23 Adult heal th examination 365376814 Z00.01 Hyperlipidemia 94708883 E78.5 Anticoagulant therapy 18 1835611 Z79.01 Essential hypertension 38288425 I10 Chronic back pain 970430 002 G89.29 Herpes sim plex type 2 infection 179241057 B00.9 Screening for malignant neoplasm of colon 238567064 Z12.11 Ex-cigarette smoker 2810 68978 Z87.891 Raynaud's phenomenon 266 293435 I73.00 History of placement of stent for coronary artery disease 056005309 Z95.5 [id number] Dilma Horta MD [facility] [address] [place] [id number] 02/03/2020 11:05:53 02/08/2020 21:14:46 History of placement of stent for coronary artery disease 258176041 Z95.5 Former hea vy tobacco smoker 2565143914 87414 Z87.891 Chronic cough 42760882 R 05 History of acute lower respiratory tract infection 780082762 Z87.09 Generalize d osteoarthritis 350106017 M15.9 Lung funct ion restrictive 187434621 R94.2 Essential hypertension 66463782 I10 Hyperlipidemia 74424117 E78.5 Anticoagulant therapy 18 8311840 Z79.01 Plantar wa rt of right foot [id number] 1199552 B07.0 [id number] Dilma Horta MD [facility] [address] [address] 04/21/2021 14:05:02 04/24/2021 17:35:52 Administration of influenza vaccine 15832390 Z23 Restless legs 05521871 G 25.81 Adult [facility] th examination 776431868 Z00.01 Hyperlipidemia 98994728 E78.5 Anticoagulant therapy 18 0064099 Z79.01 Essential hypertension 73051247 I10 Chronic back pain 646302 002 G89.29 Herpes sim plex type 2 infection 826377256 B00.9 Ex-cigarette smoker 2810 21807 Z87.891 Raynaud's phenomenon 266 356837 I73.00 History of placement of stent for coronary artery disease 771540017 Z95.5 Body mass index 25-29 - overweight 875777004 Z68.28 [id number] Dilma Horta MD [facility] [address] [address] 04/24/2022 08:58:48 04/25/2022 08:10:04 Adult health examination 199579343 Z00.01 Restless legs 56376647 G 25.81 Hyperlipidemia 28089218 E78.5 Anticoagulant therapy 18 1881645 Z79.01 Essential hypertension 80618925 I10 Chronic back pain 414137 002 G89.29 Herpes sim plex type 2 infection 340221914 B00.9 Ex-cigarette smoker 2810 09751 Z87.891 Raynaud's phenomenon 266 930347 I73.00 History of placement of stent for coronary artery disease 520869893 Z95.5 Chronic pain syndrome 37 0805983 G89.4 Paroxysmal atrial fibrillation 681391590 I48.0 Screening for malignant neoplasm of prostate 964815808 Z12.5 Influenza vaccination declined 962731084 Z28.21 Body mass index 30+ - obesity 146051774 Z68.30 [id number] Dilma Horta MD [facility] [address] [address] 05/24/2023 13:27:46 05/25/2023 10:25:40 Allergic rhinitis 58579990 J30.9 Adult heal th examination 296671020 Z00.01 Restless legs 32687127 G 25.81 Anticoagulant therapy 18 7499733 Z79.01 Hyperlipidemia 49479121 E78.5 Essential hypertension 30846432 I10 Chronic back pain 682697 002 G89.29 Herpes sim plex type 2 infection 382853541 B00.9 Ex-cigarette smoker 2810 72161 Z87.891 Raynaud's phenomenon 266 101458 I73.00 History of placement of stent for coronary artery disease 053663834 Z95.5 Chronic pain syndrome 37 8769013 G89.4 Paroxysmal atrial fibrillation 471041685 I48.0 Influenza vaccination declined 131046804 Z28.21 Body mass index 30+ - obesity 308583555 Z68.30 Screening for malignant neoplasm of colon 746302926 Z12.11 Ex-smoker 1848346 Z87.89 1 History of radiofrequency ablation operation for arrhythmia 332935189 Z98.890 Screening for cardiovascular system disease 429886002 Z13.6 [id number] Dilma Horta MD [facility] [address] [address] 05/27/2024 08:55:33 05/29/2024 10:39:30 Adult health examination 547279251 Z00.01 Allergic rhinitis 777856 04 J30.9 Restless legs 03432552 G 25.81 Anticoagulant therapy 18 7406716 Z79.01 Hyperlipidemia 53017759 E78.5 Essential hypertension 51249722 I10 Chronic back pain 532743 002 G89.29 Herpes sim plex type 2 infection 791256932 B00.9 Ex-cigarette smoker 2810 40901 Z87.891 Raynaud's phenomenon 266 757920 I73.00 History of placement of stent for coronary artery disease 391953058 Z95.5 Chronic pain syndrome 37 5955930 G89.4 Paroxysmal atrial fibrillation 477870581 I48.0 Influenza vaccination declined 739595332 Z28.21 Ex-smoker 3139264 Z87.89 1 History of radiofrequency ablation operation for arrhythmia 615338871 Z98.890 Screening for cardiovascular system disease 820829011 Z13.6 Body mass index 25-29 - overweight 563966866 Z68.28 [id number] Dilma Horta MD [facility] [address] [place] [address], [facility] [address] [place] [address] 09/25/2024 15:00:24 09/26/2024 10:59:26 Allergic urticaria 08406899 L50.0 Health Concerns Section Related Observation LastModified by Organization Detai ls LastModified Time None Recorded Concern Status LastModified by Organization Details LastModified Time None Recorded Advance Directives Directive Y: Payers Encounter Date Sequence Insurance Name Policy Number Policy Richardson Covered Member ID Richardson Member ID Guarantor Name 04/21/2021 1 [employer] - [employer] () Abdias Cassidy [id number] Abdias Cassidy 04/24/2022 1 [employer] () Abdias Cassidy [id number] Abdias Cassidy 05/24/2023 2 WPS - FOR LIFE (MEDICARE SUPPLEMENT) Abdias Cassidy [id number] Abdias Cassidy 05/24/2023 1 [place] Abdias Cassidy [id number] Abdias Cassidy 05/27/2024 2 [employer]PS - FOR LIFE (MEDICARE SUPPLEMENT) Abdias Cassidy [id number] Abdias Cassidy 05/27/2024 1 [place] Abdias Cassidy [id number] Abdias Cassidy 09/25/2024 2 [employer] - FOR LIFE (MEDICARE SUPPLEMENT) Abdias Cassidy [id number] Abdias Cassidy 09/25/2024 1 [place] Abdias Cassidy [id number] Abdias Cassidy Notes Date Note Type Note Provider Name and Address Organization Details Recorded Time 04/21/2021 text/html he has retired from [employer] and is living with much less stress 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 Dilma Horta MD [address], [address], [employer] 04/22/2021 08:42:53 05/24/2023 text/html recently had a successful cardiac ablation after 3 attempts of failed cardioversion. He feels much better as before he just slept a lot with chronic tiredness. Dilma Horta MD [address], [address], [employer] [employer] 05/24/2023 22:41:54 05/27/2024 text/html stays active and had a large garden this summer Taking a tylenol 3 about every other day for pain management Dilma Horta MD [address], [address], [facility] [employer] 05/28/2024 22:07:25 09/25/2024 text/html he is having a recurrent eruption over the torso, legs back and this has been going off and on for a month. He took steroids from an [facility] and it temporarily got better.He had 2 stents this Sunday and was started on Plavix. He still takes the ASA and Eliquis. He had been having angina and his administrative tech, Dr Jose was not available and his orthopedic assistant told them Good LUck They are going to change to Dr. Jaimes and the cardiology group at [facility].He has claritin D but not taking it we advise regular claritin and famotidine. Dilma Horta MD [address] [address], [place], [address], [employer] [facility] 09/25/2024 20:42:37
--- OUTSIDE RECORDS SUMMARY | 2024-12-17 11:19 | XMS_ITS | Encounter Summary ---
Author Name [facility] [facility] [place] [facility] [place] Address [address] [place] [address] Support Name Relationship Address Phone KIRSTIN CASSIDY Next of Kin [address] [place] [address] KIRSTIN CASSIDY Emergency Contact [address] [place] [address] Selected Encounter This section includes the information on record at [place] for the Encounter. Date/Time Encounter Type Encounter Description Reason Pro vider Source Nov 14, 2024 09:18 AM Outpatient Encounter TELEPHONE/MEDICINE IHE Encounter Template Text not used by [facility] Encounter Notes: All associated encounter notes This section contains the clinical notes associated to the Encounter. Date/Time Encounter Note(s) Provider Source Nov 14, 2024 09:18 AM ADMINISTRATIVE NOT E: LOCAL TITLE: V9 [facility] ADMINISTRATIVE NOTE STANDARD TITLE: ADMINISTRATIVE NOTE DATE OF NOTE: NOV 14, 2024@09:18 ENTRY DATE: NOV 14, 2024@09:18:50 AUTHOR: AJ WILLIS EXP COSIGNER: URGENCY: STATUS: COMPLETED Toxic Exposure Screening: Attempts to contact Hiland/caregiver to perform TOREY: 1 Contact type: Telephone-left message to call back Unsuccessful attempt to reach via phone to complete Toxic Exposure Screening Reminder in CPRS. HIPAA compliant message left with TOREY Contact Information. /sree/ AJ WILLIS PHYSICIAN MANAGER AIR Signed: 11/14/2024 09:19 AJ WILLIS-[facility]
--- OUTSIDE RECORDS SUMMARY | 2024-12-17 11:19 | XMS_ITS | Continuity of Care Document ---
Author Name [facility] Organization [facility] Care Team Providers Care Agency Sales Director Name Role Phone [facility] Unavailable Unavailable Problems Combined list of problems from Department of [facility] and [facility] facilities. It does not include entries that were removed or entered in error. Problem Status Onset Date Problem Type Date of Resolution Comments Source Exposure to potentially hazardous substance Active Condition [facility] Diagnosis: ICD-10-CM Z77.29 Contact with and exposure to other hazardous substances Active Diagnosis [facility] Medications Combined list of outpatient medications from Department of [facility] and [facility] facilities.Medications provided include 1) outpatient medications from the last 15 months, and 2) patient-reported medications. Medication Details Route Status Patient Instructions Prescription Expires Prescription Number Last Dispense Date Ordering Provider Order Date Order Qty Source ACETAMINOPH EN-CODEINE (ACETAMINOP HEN WITH CODEINE), 300MG-30MG, TABLET, ORAL, MALLINKRT PHARM, 100 ea. BOTTLE Cancele d [id number] : 2023 0 Pharmac y Data Transac tion Service Facilit y ELIQUIS (APIXABAN), 5 MG, TABLET, ORAL, BMS PRIMARYCARE , 60 ea. BOTTLE Active [id number] 2023 180 Pharmac y Data Transac tion Service Facilit y ROPINIROLE HCL (ropinirole HCl), 0.5 MG, TABLET, ORAL, MARLEX PHARM., 100 ea. BOTTLE Active [id number] 4 2023 180 Pharmac y Data Transac tion Service Facilit y Immunizations Combined list of available immunizations from the Department of Defense and [facility] facilities. Immunization Series Date Given Administered By Site Reaction Lot Number CVX Code Drug Land Reclamation Specialist Status Comments Source influenza, injectable, quadrivalent, preservative free 2019 KHAFAGI, () Not Given influenza , injectabl e, quadrival ent, preservat nathony free [facility] Encounters Combined list of: 1) Encounters from Department of Veterans Affairs facilities going backup to the last 18 months, not all [place] inpatient encounters are included; 2) Encounters from the Department of Defense facilities going backup to 280 months. Location Location Details Encounter Type Encounter Number Reason For Visit Attending Provider ADM Date DC Date Status Disposition Source [facility] Outpatient Encounter [id number] 11/14 [place] [facility] [place] Outpatient Encounter [id number] 11/14 [place] [facility] BRIEF COMUNICAJ TECH-BSD C [id number] Diagnos is: ICD-10- CM Z77.29 Contact with and exposur e to other hazardo us substan ST FLORENTIN Alfaro 11/17 [place] [facility] Social History Combined list of available smoking, tobacco, and other social history from Department of Defense and Veterans Affairs facilities. Social History Type Response Date Comment Sourc e This section is an empty social history section. DoD
--- OUTSIDE RECORDS SUMMARY | 2024-12-17 11:19 | XMS_ITS ---
Author Name [facility] [facility] [place] Address [address] [place] [address] Support Name Relationship Address Phone KIRSTIN CASSIDY Next of Kin [address] [place] [address] KIRSTIN CASSIDY Emergency Contact [address] [place] [address] Selected Encounter This section includes the information on record at [place] for the Encounter. Date/Time Encounter Type Encounter Description Reason Provider Source Nov 17, 2024 09:01 AM BRIEF COMUNHactus TECH-D [facility] TELEPHONE/MEDICIN E ICD-10-CM Z77.29 Contact with and exposure to other hazardous substances ARLENE WILLIS Svetlana Encounter Template Text not used by [place] Assessments - Encounter Diagnoses This section includes the primary and secondary diagnoses documented for the Encounter. Date/Time Primary/Secondary Diagnosis Diagnosis Name Provider Source Nov 17, 2024 09:01 AM PRIMARY Contact with and exposure to other hazardous substances [facility] Encounter Notes: All associated encounter notes This section contains the clinical notes associated to the Encounter. Date/Time Encounter Note(s) Provider Source Nov 17, 2024 09:01 AM [facility] NOTE: LOCAL TITLE: V9 [facility] TOREY TELEPHONE APPOINTMENT NOTE STANDARD TITLE: [facility] REGISTRY NOTE DATE OF NOTE: NOV 17, 2024@09:01 ENTRY DATE: NOV 17, 2024@09:01:26 AUTHOR: AJ WILLIS EXP COSIGNER: URGENCY: STATUS: COMPLETED 69 y.o. patient presents for Toxic Exposure Screen via telephone in lieu of face to face. 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 /caregiver was made aware of educational resources and additional information was offered and provided if desired. /caregiver has health or medical concerns related to their concern of environmental exposure. Question: History of cardiovascular disease and COPD- followed by treating providers. No questions at this time Harvey/caregiver was informed of local points of contact. Contact information for local resources: Benefits/Claim Questions: Veterans Benefits Administration (VBA): The following connections were provided to the Harvey/caregiver: Veterans Benefits Administration (VBA) for Benefits/claims: was made aware of educational resources that include information on Exposure fact sheet which is available at www.publichealth.[place].gov/expo sures Discussed/Reviewed VA's Depleted Uranium Follow Up program with . does not wish to be contacted or be provided DU Follow Up program phone # at this time. Total time spent: 8 min. No time spent in medical decision making with TOREY /sree/ AJ WILLIS PHYSICIAN CABLE TELEVISION PROGRAM DIRECTOR Signed: 11/17/2024 09:20 AJ WILLIS-[facility]
--- OUTSIDE RECORDS SUMMARY | 2024-12-17 11:19 | XMS_ITS | Encounter Summary ---
Author Name [facility] [place] [facility] [place] [facility] [place] Address [address] [place] [address] Support Name Relationship Address Phone KIRSTIN CASSIDY Next of Kin [address] [place] [address] KIRSTIN CASSIDY Emergency Contact [address] [place] [address] Selected Encounter This section includes the information on record at [place] for the Encounter. Date/Time Encounter Type Encounter Description Reason Pro vider Source Nov 14, 2024 12:00 AM Outpatient Encounter EVENT (HISTORICAL) IHE Encounter Template Text not used by [place]
[2024-12-17 11:46] LABS: Anti-Centromere B Antibodies ND; Anti-DNA (DS) Ab Qn ND; Anti-Jo-1 ND; Antichromatin Antibodies ND; Antiscleroderma-70 Antibodies ND; RNP Antibodies ND; Sjogren's Anti-SS-A ND; Sjogren's Anti-SS-B ND
[2024-12-17 12:24] LABS: Basophils % 0.3 % (0.1-2.0); Eosinophils # 0.3 Kmm3 (0.0-0.4); Eosinophils % 4.9 % (0.1-12.0); Hematocrit 44.1 % (42.0-52.0); Hemoglobin 14.8 g/dL (14.1-18.0); Immature Granulocytes # 0.02 10^3uL; Immature Granulocytes % 0.3 %; Lymphocytes # 1.6 K/mm3 (0.7-4.5); Lymphocytes % 24.6 % (10-50); Mean Corpuscular HGB Conc 33.6 g/dL (31.8-35.4); Mean Corpuscular Hemoglobin 30.6 pg (27.0-31.2); Mean Corpuscular Volume 91.3 fl (80-94); Mean Platelet Volume 11.3 fl (7.4-10.4); Monocytes # 0.8 K/mm3 (0.1-1.0); Monocytes % 12.9 % (1.7-9.3); Neutrophils # 3.6 K/mm3 (1.8-7.8); Nucleated Red Blood Cells # 0 10^3/uL; Nucleated Red Blood Cells % 0 %; Platelet Count 175 K/mm3 (142-424); Red Blood Count 4.83 M/mm3 (4.60-6.20); Red Cell Distribution Width 13.3 % (11.5-17.5); Red Cell Distribution Width-SD 44.8 fL; White Blood Count 6.4 K/mm3 (4.8-10.8)
[2024-12-17 12:52] LABS: Alanine Aminotransferase 25 U/L (12-78); Albumin Level 4.1 g/dl (3.5-5.0); Albumin/Globulin Ratio 1.8 (1.1-1.8); Alkaline Phosphatase 52 U/L (38-126); Anion Gap 7.3 mEq/L (5-15); Aspartate Amino Transferase 28 U/L (17-59); Bilirubin,Total 0.7 mg/dl (0.2-1.3); Blood Urea Nitrogen 18 mg/dl (9-20); Calcium 8.6 mg/dl (8.4-10.2); Carbon Dioxide 27 mmol/L (22.0-30.0); Chloride 110 mmol/L (98-107); Estimated Glomerular Filt Rate 112 ml/min (>60); GFR (African American) 136 ML/MIN (>60); Globulin 2.3 g/dL (1.3-3.2); Glucose 92 mg/dl (74-100); Potassium 4.3 mmoL/L (3.5-5.1); Sodium 140 mmol/L (136-145); Total Protein,Serum 6.4 g/dl (6.3-8.2)
[2024-12-17 13:08] LABS: 25-OH Vitamin D, Total 50.9 ng/mL (30-100)
[2024-12-17 13:23] LABS: Thyroid Stimulating Hormone 1.13 uIU/mL (0.465-4.68)
[2024-12-18 11:15] LABS: Antinuclear Antibodies (ANA) Negative (Negative)
[2024-12-18 13:10] LABS: Thyroid Peroxidase Antibodies <9 IU/mL (0-34)
[2024-12-18 15:27] LABS: Thyroglobulin Level <1.0 IU/mL (0.0-0.9)
[2024-12-19 15:42] LABS: F026-IgE Pork 0.11 kU/L (Class 0/I); F027-IgE Beef 1.03 kU/L (Class II); F088-IgE Lamb 0.36 kU/L (Class I); Immunoglobulin E, Total 325 IU/mL (6-495); O215-IgE Alpha-Gal 4.52 kU/L (Class IV)
== END 2024-12-17 23:59 | disposition home or self-care (01) ==
LOC: LAB 11:17
PROVIDERS: Nurse Practitioner; PCP Family Medicine; Visit Provider Allergy & Immunology
DX: L50.0 Allergic urticaria (principal); I10 Essential (primary) hypertension; E55.9 Vitamin D deficiency, unspecified
CPT/HCPCS: 36415; 80053; 82306; 82785; 83520; 84439; 84443; 85025; 86003; 86008; 86038; 86376; 86800